=== PATIENT | female | born 1990 | race Caucasian/White ===

== ENCOUNTER → 2020-11-29 08:30 | Outpatient (CLI) | payer OTHER, SELFPAY ==
--- NOTE | 2020-11-29 08:36 | DI.US.S_ITS ---
PROCEDURE: US OB <= 14 WEEKS FETUS INDICATIONS: INITIAL SIZING AND DATING OUTSIDE/PRIOR DATING DATA: Last menstrual period (LMP): 10/14/2020 . LMP-based estimated date of delivery (REX): 07/21/2021 First dating scan (date and location): 11/29/2020 . Estimated date of delivery (REX) from first dating scan: 07/23/2021 . TECHNIQUE: Real-time scanning was performed of the fetus and maternal pelvic organs, with image documentation. COMPARISON: None. FINDINGS: Single intrauterine gestational sac with 1.4 cm main stack diameter corresponding with a 6 week 2 day gestation. Yolk sac is identified, however, no pole or cardiac motion observed. No perigestational bleed. Maternal organs: Ovaries unremarkable. No evidence of torsion or adnexal mass. . IMPRESSION: Intrauterine gestational sac contains yolk sac but no pole or cardiac motion. Differential possibilities include normal early , anembryonic and demise. Consider short-term follow-up. Dictated by: Eugene Del Toro M.D. on 11/30/2020 at 18:08 Approved by: Eugene Del Toro M.D. on 11/30/2020 at 18:11
== END ==
PROVIDERS: PCP Family Medicine; Referring Provider Nurse Practitioner Obstetrics & Gynecology; Visit Provider Nurse Practitioner Obstetrics & Gynecology
DX: Z36.87 Encounter for antenatal screening for uncertain dates (principal); Z3A.01 Less than 8 weeks gestation of pregnancy
CPT/HCPCS: 76801; 76817

== ENCOUNTER → 2021-03-15 15:35 | Outpatient (CLI) | payer OTHER, SELFPAY ==
--- NOTE | 2021-03-15 15:38 | DI.US.S_ITS ---
PROCEDURE: US OB >= 14 WEEKS FETUS INDICATIONS: 20 WEEKS ANATOMICAL SURVEY OUTSIDE/PRIOR DATING DATA: Last menstrual period (LMP): 10/14/2020. LMP-based estimated date of delivery (REX): 07/21/2021 First dating scan (date and location): 11/29/2020 Estimated date of delivery (REX) from first dating scan: 07/23/2020 TECHNIQUE: Real-time scanning was performed of the fetus, with image documentation and biometric measurements. Endovaginal scanning: Not performed COMPARISON: None. FINDINGS: General: A single living intrauterine gestation is present. Presentation: Cephalic Placenta: Placental position is posterior, without previa. Cord inserts approximately 3.2 centimeters from the placental edge. Amniotic fluid index: 15.3 cm, normal range is 5-24 cm. heart rate: 144 beats per minute. Maternal cervical canal: 3.5 cm long. Normal lower limit is 2.5 cm. biometrics: Biparietal diameter: 5.1 cm corresponding to 21 weeks 2 days Head circumference: 17.8 cm corresponding to 20 weeks 2 days Cephalic index: 84.4 (normal 74-83) Abdominal circumference: 15.6 centimeters corresponding to 20 weeks 5 days Femur length: 3.2 cm corresponding to 20 weeks 0 days Estimated gestational age from initial scan: 21 weeks 3 days Composite gestational age from present scan: 20 weeks 4 days Estimated weight and percentile: 353 grams corresponding to the 8th percentile Measurement variability for biometric dating: +/- 7 days from 14 weeks to 15 weeks 6 days gestation, +/- 10 days from 16 weeks to 21 weeks 6 days gestation, +/- 2 weeks from 22 weeks to 27 weeks 6 days gestation, +/- 3 weeks for 28 weeks gestation or later. weight reference: 4500 g or EFW >90/95% is considered macrosomia or large for gestational age. EFW <10% is small for gestational age. EFW 5% or less is considered intra-uterine growth restriction. Anatomic survey: Neuro: Ventricles are non-dilated at less than 10 mm. Cisterna magna is normal at 3-11 mm. Cerebellum is normal in size and morphology. Nuchal skin fold: Normal at less than 6 mm between 14-21 weeks gestational age. Face: Nose and lips, facial profile are normal. Spine: No evidence for spina bifida. Heart: 4-chambered heart is present. Outflow tract not well delineated. Diaphragm: Diaphragm is intact. Stomach: Left-sided stomach is present. Kidneys: No hydronephrosis. Normal is less than 5 mm in 2nd trimester, less than 7 mm in 3rd trimester. Cord: 3-vessel cord has orthotopic insertion. Bladder: Normal in size. Extremities: All 4 extremities identified. IMPRESSION: Single living intrauterine with heart rate of 144 beats per minute in cephalic position. Composite gestational age on today's exam is 20 weeks 4 days. Estimated weight measures 353 grams corresponding to the 8th percentile. The cardiac outflow tracts are not well delineated on today's examination. Consider repeat if clinically warranted. No other anatomic abnormality identified. Cephalic index is slightly increased which may be due to positioning and lack of other suspicious findings. Brachycephaly is not completely excluded. Consider follow-up if clinically warranted. Dictated by: Javid Verma D.O. on 03/16/2021 at 8:04 Approved by: Javid Verma D.O. on 03/16/2021 at 8:21
== END ==
PROVIDERS: PCP Family Medicine; Referring Provider Nurse Practitioner Obstetrics & Gynecology; Visit Provider Nurse Practitioner Obstetrics & Gynecology
DX: Z36.89 Encounter for other specified antenatal screening (principal); Z3A.20 20 weeks gestation of pregnancy
CPT/HCPCS: 76811

== ENCOUNTER → 2021-04-12 15:40 | Outpatient (CLI) | payer OTHER, SELFPAY ==
--- NOTE | 2021-04-12 | DI.US.S_ITS ---
PROCEDURE: US OB FOLLOW UP INDICATIONS: HEART OUTFLOW TRACTS, GROWTH, CEPHALIC INDEX FOLLOW UP OUTSIDE/PRIOR DATING DATA: Last menstrual period (LMP): 10/14/20 LMP-based estimated date of delivery (REX): 07/21/21 . First dating scan (date and location): 11/29/20 . Estimated date of delivery (REX) from first dating scan: 07/23/21 . TECHNIQUE: Real-time scanning was performed of the fetus, with image documentation and biometric measurements. Endovaginal scanning: Not performed COMPARISON: [facility], OB >= 14 WEEKS FETUS, 03/15/2021, 16:36. [facility], OB <= 14 WEEKS FETUS, 11/29/2020, 8:49. FINDINGS: General: A single living intrauterine gestation is present. Presentation: Breech. Placenta: Placental position is posterior , without previa. Amniotic fluid index: 15.1 cm, normal range is 5-24 cm. heart rate: 141 beats per minute. Maternal cervical canal: 4.6 cm long. Normal lower limit is 2.5 cm. biometrics: Biparietal diameter: 6.2 cm, 25 weeks 2 days Head circumference: 3.4 cm, 25 weeks 3 days Abdominal circumference: 21.7 cm, 26 weeks 1 day Femur length: 4.3 cm, 24 weeks 0 days (7th percentile) Estimated gestational age from initial scan: 25 weeks 3 days Composite gestational age from present scan: 25 weeks 2 days Estimated weight and percentile: 794 g, 34th percentile Measurement variability for biometric dating: +/- 7 days from 14 weeks to 15 weeks 6 days gestation, +/- 10 days from 16 weeks to 21 weeks 6 days gestation, +/- 2 weeks from 22 weeks to 27 weeks 6 days gestation, +/- 3 weeks for 28 weeks gestation or later. weight reference: 4500 g or EFW >90/95% is considered macrosomia or large for gestational age. EFW <10% is small for gestational age. EFW 5% or less is considered intra-uterine growth restriction. Other: Normal appearance of the ventricular outflow tracts. Prominence of the renal pelves measuring 7 mm on the left and 5 mm on the right. IMPRESSION: Single living intrauterine fetus in breech presentation. Expected interval growth Prominence of both renal pelves, left greater than right. Recommend follow-up. Dictated by: Kana Gonzalez M.D. on 04/12/2021 at 16:59 Approved by: Kana Gonzalez M.D. on 04/12/2021 at 17:03
== END ==
PROVIDERS: PCP Family Medicine; Referring Provider Nurse Practitioner Obstetrics & Gynecology; Visit Provider Nurse Practitioner Obstetrics & Gynecology
DX: Z36.2 Encounter for other antenatal screening follow-up (principal); Z3A.25 25 weeks gestation of pregnancy
CPT/HCPCS: 76816

== ENCOUNTER → 2021-06-07 07:28 | Outpatient (CLI) | payer OTHER, SELFPAY ==
[2021-06-07 09:30] LABS: Glucose Fasting 80 mg/dL (70-100)
[2021-06-07 10:42] LABS: Glucose 1 Hour 160 mg/dL (70-170)
[2021-06-07 11:04] LABS: Glucose Tol Interpretation INTERPRETATION
[2021-06-07 13:15] LABS: Glucose 3 Hour 131 mg/dL (70-115)
[2021-06-07 13:27] LABS: Glucose 2 Hour 152 mg/dL (70-140)
== END ==
PROVIDERS: PCP Family Medicine; Referring Provider Nurse Practitioner Obstetrics & Gynecology; Visit Provider Nurse Practitioner Obstetrics & Gynecology
DX: Z34.90 Encounter for supervision of normal pregnancy, unspecified, unspecified trimester (principal); Z3A.29 29 weeks gestation of pregnancy
CPT/HCPCS: 36415; 82951; 82952

== ENCOUNTER → 2021-06-17 09:29 | Outpatient (CLI) | payer OTHER, SELFPAY ==
--- NOTE | 2021-06-17 | DI.US.S_ITS ---
PROCEDURE: US OB FOLLOW UP INDICATIONS: RENAL PELVIECTASIS OUTSIDE/PRIOR DATING DATA: Last menstrual period (LMP): 10/14/2020. LMP-based estimated date of delivery (REX): 07/21/2021. First dating scan (date and location): 11/29/2021. Estimated date of delivery (REX) from first dating scan: 07/23/2021. TECHNIQUE: Real-time scanning was performed of the fetus, with image documentation and biometric measurements. COMPARISON: [facility], OB >= 14 WEEKS FETUS, 03/15/2021, 16:36. [facility], OB <= 14 WEEKS FETUS, 11/29/2020, 8:49. [facility] OB FOLLOW UP, 04/12/2021, 16:08. FINDINGS: General: A single living intrauterine gestation is present. Presentation: Breech. Placenta: Placental position is posterior , without previa. Amniotic fluid index: 16.7 cm, normal range is 5-24 cm. heart rate: 155 beats per minute. Maternal cervical canal: Not well seen biometrics: Composite gestational age from initial scan: 34 weeks 6 days Other: Urinary bladder is prominent. Right renal pelvis measures 5.9 mm. Left renal pelvis measures 9.3 mm. This is compared to 5.4 mm and 6.7 mm on the right and left respectively. IMPRESSION: 1. Single live intrauterine . 2. Progressive prominence of the renal pelvis on the right with stable appearance on the left. Urinary bladder appears prominent. Continued interval imaging follow-up is recommended. We strive to produce accurate, complete, and clear reports of imaging services. To assist us in improving patient care, this report was composed using standard report templates and voice recognition software. Therefore, it may contain abnormal punctuation, insertions and/or omissions. Occasional wrong-word or sound-alike substitutions may occur. Though we review the report and make efforts to correct it, we do recommend that the report be read carefully in proper context to recognize any text inaccuracies. Dictated by: Antonieta Rodriguez M.D. on 06/17/2021 at 10:33 Approved by: Antonieta Rodriguez M.D. on 06/17/2021 at 10:36
== END ==
PROVIDERS: PCP Family Medicine; Referring Provider Nurse Practitioner Obstetrics & Gynecology; Visit Provider Nurse Practitioner Obstetrics & Gynecology
DX: Z34.93 Encounter for supervision of normal pregnancy, unspecified, third trimester (principal); Z3A.34 34 weeks gestation of pregnancy
CPT/HCPCS: 76816

== ENCOUNTER 2021-07-09 05:57 | Observation (INO) | payer OTHER, SELFPAY ==
[2021-07-09] MEDS: TERBUTALINE 1 MG/ML VIAL 0.25 MG SUBCUT (07:49)
--- NOTE | 2021-07-09 08:22 | PM.OBTRLD ---
Visit Information Visit Information Date of evaluation: 07/09/21 Primary OB Provider: Deyanira Gilbert On-call OB Provider: Becca Ryan Reason for Evaluation: Yes other Comments/Additional reasons for admission: This patient is a 31yo P0 @37+0 with known breech presentation, presenting for attempted external cephalic version. We discussed the risks of PROM, cord prolapse, and placental abruption with need for emergent delivery, and the patient vocalized understanding. After informed consent was obtained, the patient was placed supine. An NST prior to the procedure was reassuring with cat 1 EFM, and the patient was administered 0.25mg IM terbutaline. Complete breech presentation was confirmed on ultrasound, and three attempts were made to attempt to convert the fetus to cephalic presentation with minimal movement of the vertex. Breech lie was confirmed after the third attempt, and the patient remained in L&D for further monitoring. We discussed the recommendation for CS at 39 weeks, and the patient vocalized understanding. Vital Signs Vital Signs: S [facility] Social History Smoking Status: Never smoker Exam Vital Signs (past 8 hours): 108/63, HR 78 Const General: cooperative, healthy appearing, comfortable and acute distress Evaluation Evaluation Baseline heart rate: 130 Variability: Moderate (11-25) monitor accelerations: Present Monitor Decelerations: Absent Category of Tracing: Reactive Status: Category l Diagnosis, Plan/Disposition Plan/Disposition Plan: Home with routine precautions and plan for primary CS for breech presentation. OB Disposition: home
== END 2021-07-09 09:22 | disposition home or self-care (01) ==
PROVIDERS: Admitting Provider Family Medicine; PCP Family Medicine; Referring Provider Family Medicine; Visit Provider Family Medicine
DX: O32.1XX0 Maternal care for breech presentation, not applicable or unspecified (principal); Z3A.37 37 weeks gestation of pregnancy; Z36.85 Encounter for antenatal screening for Streptococcus B
CPT/HCPCS: 59025; 59050; 59412; 76815; 87081; 96372; G0378; G0379

== ENCOUNTER → 2021-07-09 08:51 | Outpatient (ROUT) | payer OTHER, SELFPAY | PROVIDERS: PCP Family Medicine; Visit Provider Nurse Practitioner Obstetrics & Gynecology | DX: Z36.85 Encounter for antenatal screening for Streptococcus B (principal) | CPT/HCPCS: 87081 ==

== ENCOUNTER 2021-07-28 21:13 | Inpatient (IN) | payer OTHER, SELFPAY ==
--- NOTE | 2021-07-28 21:55 | P.HPOB_ITS ---
OB HPI Date/Time Date of admission: 07/28/21 Date Patient Seen: 07/28/21 Time Patient Seen: 21:55 History of Present Condition Chief complaint: Estimated Gestational Age (weeks): 39+5 : 1 Para: 0 care: good care Ultrasounds: normal mid trimester US Obstetrical complications: other (Breech presentation) Medical complications OB: none Indications Operative indications ( section): breech presentation Preadmission Labs Last OB Lab Results: No Data to Display Evaluation Evaluation Baseline heart rate: 135 Variability: Moderate (11-25) monitor accelerations: Present Monitor Decelerations: Absent Contraction Frequency (minutes): 3 Uterine Contraction Intensity: Moderate Status: Category l Dilation (cm): 6 Effacement (%): 100 station: -1 Comments: [facility] Social History Smoking Status: Never smoker Meds Home Medications and Allergies Home Medications Medication Instructions Recorded Confirmed Type biotin PO 04/21/18 07/23/21 History cetirizine 10 mg tablet (24Hour 5 mg PO DAILY PRN 04/21/18 07/23/21 History Allergy) drospirenone 3 mg-ethinyl 1 tab PO DAILY 04/21/18 07/23/21 History estradiol 0.02 mg tablet (Gianvi (28)) multivitamin 1 tab PO DAILY 04/21/18 07/23/21 History nadolol 20 mg tablet 20 mg PO DAILY #30 tab 05/27/18 07/23/21 Rx eletriptan 40 mg tablet 40 mg PO Q2-4H PRN #12 tab 06/13/19 07/23/21 Rx eletriptan 40 mg tablet 40 mg PO Q2-4H PRN #10 tab 07/12/19 07/23/21 Rx Allergies Allergy/AdvReac Type Severity Reaction Status Date / Time gluten Allergy Intermediate STOMACH Verified 07/23/21 16:32 DICOMFORT lactase [From Dairy Aid] AdvReac Mild Intolerance Verified 07/23/21 16:32 OB Exam Narrative Exam Narrative: Generally: Patient in some distress secondary to contraction Fundal height: 39 cm Estimated weight: 7-1/2 lb Extremities: No edema Assessment and Plan Assessment and Plan Assessment and Plan narrative: Assessment: 31-year-old 1 para 0 at 39-,5/7 weeks gestation in active labor with persistent breech presentation Plan: Primary low-transverse section The risks including bleeding, infection, injury to the bowel, bladder, or ureters explained to the patient. She understands these risks and agrees to proceed. A full par Q was held and consent form was signed. Time Spent with Patient Total time spent with greater than 50% in coordination of care (as documented) at patient's floor/unit and/or counseling patient:: 15-24 minutes
--- NOTE | 2021-07-28 21:58 | PM.PREOP ---
Pre-operative Note COVID-19 COVID-19 status: Negative Result date/Date tested (Pos, Neg/Pending): 07/28/21 Criteria for continued procedure: Non-surgical alternatives not available or appropriate per current SOC Interval Note History & Physical reviewed/Exam performed by Physician: Yes Changes to H&P: No H&P completed within 30 days and has changed as indicated here:: 07/28/21
[2021-07-28 22:08] VITALS: BP 132/80
--- NOTE | 2021-07-28 22:08 | SUR.OPER ---
Supine on Padded OR bed, head on pillow, safety belt at thigh, arms secured on padded arm boards at <90 degrees abduction. Bump under right buttock. Legs uncrossed with pillow under knees, gel pad to heels, tape over blanket to lower legs.
[2021-07-28 22:09] LABS: Add Manual Diff / Slide Review NO; Basophils Absolute Auto 0 /uL (0-100); Basophils Percent Auto 0.2 % (0-2); Eosinophils Absolute Auto 100 /uL (0-450); Eosinophils Percent Auto 0.7 % (2-4); Hematocrit 34.3 % (36-46); Hemoglobin 11.9 g/dL (12.0-16.0); Lymphocytes Absolute Auto 2100 /uL (1100-4500); Lymphocytes Percent Auto 19.3 % (25-40); Mean Corpuscular HGB Conc 34.7 % (30-36); Mean Corpuscular Volume 86.5 fL (80-100); Monocytes Absolute Auto 800 /uL (0-900); Monocytes Percent Auto 7.6 % (3-14); Neutrophils Absolute Auto 7700 /uL (1500-7000); Neutrophils Percent Auto 72.2 % (50-75); Platelet Count 267 X10^3/uL (150-400); Red Blood Cell Count 3.96 X10^6/uL (4.0-5.2); Red Cell Distribution Width 14.3 % (11.6-14.8); White Blood Cell Count 10.6 X10^3/uL (4.5-11.0)
[2021-07-28] MEDS: LACTATED RINGERS 1,000 ML 100 ML IV (22:10)
[2021-07-28 22:16] LABS: COVID19 -Nasal RAPID Negative (Negative)
[2021-07-28] MEDS: CEFAZOLIN 2 GM/20 ML SYRINGE IV (22:25)
[2021-07-28 22:45] VITALS: PULSE 53; RESP 12
--- NOTE | 2021-07-28 23:01 | SUR.OPER ---
Viable male delivered via section at 22:55. Cord blood vials x2 and placenta sent with L&D RN.
--- NOTE | 2021-07-28 23:43 | P.OP_ITS ---
Operative Date/Time/Diagnoses Date of procedure: 07/28/21 Time of procedure: 23:43 Pre-op diagnosis: 39-5/7 weeks gestation Breech presentation Active labor Post-op diagnosis: same Procedure & Clinicians Procedure: Primary low-transverse section Same procedure as scheduled: Yes Indications: 39-,5/7 weeks gestation Breech presentation Active labor Surgeon: Concetta Wong Click Yes if Unassisted: No Organizational Development Specialist: Deyanira Gilbert Reason for Organizational Development Specialist: The educational program assistant retracted upon entry into the abdomen and uterus. She is said with the breech delivery of the . She is tested with retraction and c utting of suture on closing of the uterus and abdomen. Anesthesia Type: Spinal (With Duramorph) Operative Notes Findings: Live male infant in the complete breech presentation Normal uterus, tubes, and ovaries Moderate meconium-stained amniotic fluid Cervix completely dilated Closure Type: primary Specimen(s): cord pH and placenta Intraoperative meds administered: Duramorph, Ketorolac and Pitocin Applied: Catheter (To continuous drainage) Estimated Blood Loss (mL): 400 Blood products transfused: none Procedure in detail: The patient was taken to the operating room where she was placed in the seated position. Spinal anesthesia with Duramorph was administered. She was then placed in the dorsal supine position with a leftward tilt. She was prepped and draped in the usual sterile fashion. A timeout was performed. After spinal analgesia was found to be adequate, a Pfannenstiel skin incision was made 2 fingerbreadths above the pubic symphysis and carried through to the underlying layer fascia. The fascia was nicked in the midline, and the incision extended bilaterally with the Alexander scissors. The superior aspect of the fascial incision was grasped with a Eliza clamps, elevated, and the underlying rectus muscles dissected off sharply and bluntly. Attention was then turned to the inferior a spect of this incision which in a similar fashion was grasped with a Eliza clamps, elevated, and the underlying rectus muscles dissected off sharply and bluntly. The rectus muscles were in the midline. The peritoneum was identified, grasped between 2 hemostats, and entered sharply with the Metzenbaum scissors. This incision was extended superiorly and inferiorly with good visualization of the bladder. The bladder blade was inserted. The vesicouterine peritoneum was identified, grasped with the pickup, and entered sharply with the Metzenbaum scissors. This incision was extended bilaterally, and the bladder flap was created digitally. The bladder blade was reinserted. The lower uterine segment was incised in a transverse fashion with the scalpel. Upon entering the amniotic sac there was a moderate amount of meconium-stained amniotic fluid. The was delivered by total breech extraction. The nose and mouth were suctioned with bulb suction. The cord was double clamped and cut after 1 minute. The infant was handed off to waiting RN and RT. The placenta was delivered by gentle traction. The uterus was cleared of all clots and debris. The uterine incision was repaired with #1 chromic in a running interlocking fashion, and a second layer the same suture was used for an imbricating layer. Hemostasis was achieved. The tubes and ovaries were examined and were found to be normal. The gutters were cleared of all clots and debris. The bladder flap was reapproximated using 2-0 Vicryl in a running fashion. The parietal peritoneum was closed using 2-0 Vicryl in a running fashion. The fascia was reapproximated using 0 Vicryl in a running fashion. Subcutaneous layer was copiously irrigated with warm normal saline. 6 simple interrupted sutures of 3-0 Vicryl were placed to reapproximate the subcutaneous layer. The skin was closed with 4-0 Monocryl in a subcuticular fashion. Steri- Strips were placed. An Aquacel dressing was placed. The uterus was expressed of a moderate amount of old blood. Sponge, lap, and instrument counts were correct x-2. The patient tolerated the procedure well, and was taken to PACU in stable condition. Complications: none [place] Baby 1: Infant Gender: Male Presentation: breech Details: complete Placental Delivery Description: Expressed Cord Vessel Description: 3 Vessels and Clamped/Cut (After 1 minute) score (1 min): 9 score (5 min): 9 weight: 8 lb 8 oz Post-operative Condition: stable Disposition: PACU Aftercare: routine postop
[2021-07-28 23:44] VITALS: BP 120/65; PULSE 54; RESP 11; TEMP 36.6; O2SAT 98
[2021-07-28 23:49] VITALS: BP 123/67; PULSE 54; RESP 11; O2SAT 98
[2021-07-28 23:52] VITALS: BP 118/68; PULSE 54; RESP 11; O2SAT 98
[2021-07-28 23:57] VITALS: BP 116/66; PULSE 53; RESP 11; O2SAT 98
[2021-07-29] MEDS: ONDANSETRON 4 MG/2 ML INJ IV (00:56)
[2021-07-29] MEDS: LACTATED RINGERS 1,000 ML 100 ML IV (01:30)
[2021-07-29] MEDS: METOCLOPRAMIDE 10 MG/2 ML INJ IV (01:51)
[2021-07-29] MEDS: diphenhydrAMINE 50 MG/ML VIAL 25 MG IV (03:21)
[2021-07-29] MEDS: KETOROLAC 30 MG/ML VIAL IV ×3 (05:20→21:05)
[2021-07-29] MEDS: DOCUSATE 100 MG CAPSULE 200 MG PO (09:26)
[2021-07-29] MEDS: TRAMADOL 50 MG TABLET PO ×2 (09:27→17:30)
[2021-07-29] MEDS: PRENATAL VIT,CALC/IRON/FOLIC 1 TABLET 1 TAB PO (09:28)
[2021-07-30] MEDS: TRAMADOL 50 MG TABLET PO ×2 (02:01→08:00)
[2021-07-30] MEDS: IBUPROFEN 600 MG TABLET PO ×2 (03:22→08:57)
[2021-07-30] MEDS: DOCUSATE 100 MG CAPSULE 200 MG PO (08:57)
[2021-07-30] MEDS: PRENATAL VIT,CALC/IRON/FOLIC 1 TABLET 1 TAB PO (08:57)
--- NOTE | 2021-07-30 11:11 | P.PNOB_ITS ---
Subjective - OB Subjective Patient comments: no complaints, pain well controlled, tolerating diet and flatus present baby status: doing well and nursing well [place] feeding status: exclusively breast feeding Date Patient Seen: 07/29/21 Time Patient Seen: 13:00 Exam Vital Signs (past 8 hours): Oxygen Delivery Method Room Air Narrative Exam Narrative: Generally: Patient is sitting up in bed, no acute distress Lungs: Clear to auscultation bilaterally Cardiovascular: Regular rate and rhythm Fundus: Firm at U -1 Incision: Clean dry and intact with Aquacel dressing Extremities: Negative Homans, no edema Objective Labs Result Diagrams: 07/28/21 21:35 Assessment & Plan Plan day: 1 plan OB: routine postop care Time Spent With Patient Time: Total time spent is greater than 50% in coordination of care (as documented) at patient's floor/unit and/or counseling patient: Time with patient: 15-24 minutes
--- NOTE | 2021-07-30 11:15 | P.DS_ITS ---
Discharge Providers Provider Date of admission: 07/28/21 21:13 Discharge Date: 07/30/21 Primary care physician: Dali Triplett MD Consults: 07/28/21 23:59 Consult to Residential Care Officer Routine Comment: Discharge provider: Concetta Wong MD Summary Hospital Course Date Patient Seen: 07/30/21 Time Patient Seen: 13:30 Diagnoses: 39-5/7 weeks gestation Breech presentation Active labor Hospital Course: Patient is a 31-year-old 1 para 1 who presented to Labor and delivery in active labor at 39-,5/7 weeks gestation with a breech presentation. She underwent an emergent primary low-transverse section without complication. Her postoperative course was unremarkable. She was discharged home on postop day # 2. She was tolerating a diet. Her bleeding was tapering. was going well. She was able to empty her bladder without the catheter. No nausea or vomiting. Pain well controlled. Peripartum Data Infant Delivery Method: Emergency Section Laceration Description: None Episiotomy description: None Procedures: Spinal anesthesia Primary low-transverse section complications: none 1: Gender: Male Disposition of : home Status at Discharge Cognitive/behavioral status at discharge: oriented Functional status at discharge: independent ambulation Overall status at discharge: patient is progressing back to baseline Time Spent with Patient Time attestation: Total time spent providing and/or coordinating discharge services: Time spent: Less than 30 minutes Objective Labs Result Diagrams: 07/28/21 21:35 Exam Vital Signs (past 8 hours): Oxygen Delivery Method Room Air Narrative Exam Narrative: Generally: Patient is sitting up in bed, holding infant, no acute distress Lungs: Clear to auscultation bilaterally Cardiovascular: Regular rate and rhythm Fundus: Firm at U -1 Incision: Clean dry and intact with Aquacel dressing Extremities: Negative Homans, trace edema Discharge Plan Discharge Plan Patient Disposition: Home Provider Discharge Comment: Call with fever, chills, redness or drainage around the incision, or bleeding vaginally more than a pad in an hour Discharge orders & Medications Prescriptions: New tramadol 50 mg tablet 50 mg PO Q4H PRN (Reason: pain) Qty: 20 0RF Continued eletriptan 40 mg tablet 40 mg PO Q2-4H PRN (Reason: migraine headache) Qty: 12 11RF Rx Instructions: until response; not to exceed 2 doses in a 24 hour period multivitamin tablet 1 tab PO DAILY 0RF cetirizine [24Hour Allergy] 10 mg tablet 5 mg PO DAILY PRN (Reason: rhinitis) 0RF eletriptan 40 mg tablet 40 mg PO Q2-4H PRN (Reason: migraine headache) Qty: 10 3RF Rx Instructions: until response; not to exceed 2 doses in a 24 hour period nadolol 20 mg tablet 20 mg PO DAILY Qty: 30 11RF Follow up/Referrals: Concetta Wong MD [Physician] - 08/05/21 (Please follow up with Dr. Wong on August 05 at 2:45PM. Call with any questions) Diet/Activity/Treatments Diet: Regular Activity: No heavy lifting Skin/Wound/Dressing Care Report to your healthcare provider any signs of infection, such as:: chills, fever, increased pain, unusual drainage and unusual redness Dressing: Do not remove Visit Report/Discharge Packet Instructions: DI for , DI for Prescription Opioid Use Stand Alone Forms: Discharge: Care Discharge Data Primary Care Provider: Dali Triplett
[2021-07-30 11:23] VITALS: BP 116/69; PULSE 72; RESP 15; TEMP 36.6
[2021-07-30] MEDS: MEASLES,MUMPS,RUBELLA VACC/PF 0.5 ML VIAL SUBCUT (11:57)
[2021-07-30] MEDS: ACETAMINOPHEN 325 MG TABLET 650 MG PO (11:58)
== END 2021-07-30 14:00 | disposition home or self-care (01) | DRG 788 ==
PROVIDERS: Admitting Provider Obstetrics & Gynecology; PCP Family Medicine; Referring Provider Obstetrics & Gynecology; Visit Provider Obstetrics & Gynecology
PROC: 10D00Z1 Extraction of Products of Conception, Low, Open Approach (ICD-10-PCS; CPT 59514; principal; 2021-07-28 22:00)
DX: O64.1XX0 Obstructed labor due to breech presentation, not applicable or unspecified (principal); Z3A.39 39 weeks gestation of pregnancy; Z37.0 Single live birth
CPT/HCPCS: 36415; 59050; 85025; 86850; 86900; 86901; 87635; C9803; G0379; J0690; J1200; J1885; J2274; J2405; J2590; J2765

== ENCOUNTER 2022-11-21 10:30 | Outpatient (RCR) | payer OTHER, SELFPAY ==
--- NOTE | 2022-08-12 18:05 | PT.OIE ---
Current Diagnoses Stress incontinence (female) (male) (08/12/22) Past Medical History (Last Updated 10/01/21 @ 11:15 by Sameera Nagy DO) Breech presentation of fetus Migraine without status migrainosus, not intractable Visit Care Team Role Provider Type Leah Swan DO Family Provider Physician Primary Care Provider Specialty: Medical Address: [address] [place] [address], [address], [place], [address] Email: [email or web address] Deyanira Gilbert CNM Attending Provider Advanced Drop Crew Laborer Referring Provider Specialty: CAFETERIA HELPER Address: [address] [place] [address], [address], [place], [address] Email: [email or web address] Physical Therapy Initial Evaluation PT-OP-A Visit Information Start: 08/08/22 18:28 Freq: Status: Active Protocol: Document 08/12/22 13:51 LRN (Rec: 08/12/22 14:38 LRN [id number]) Out-Patient Physical Therapy Visit Information Visit Information Visit Type Initial Evaluation Visit Start Time 13:51 Visit Stop Time 14:33 Total Visit Minutes 42 Visit Number 1 Evaluation Information Evaluation Date 08/12/22 Precautions Precautions 07/28/21 due to baby breech and fast progressing labor. PT-OP-B Current Condition Start: 08/08/22 18:28 Freq: Status: Active Protocol: Document 08/12/22 13:51 LRN (Rec: 08/12/22 14:38 LRN [id number]) Current Condition History of Current Condition Onset Date 07/28/21 Current Complaints Urinary leakage with jumping, occ sneezing, laughing, & tailbone pain. History of Current Condition Pt is a 32 year old female, . She reports stress incontinence noted after going back to gym 3 months post- doing jumping. No longer jumping. Has intermittent tailbone pain when sitting, always in car, and when leaning back in chairs and with sit ups. Had tailbone pain during that was terrible. Tailbone pain rated 4/10, and a strong ache requiring her to shift position in sitting. Pt denies Bowel dysfunction, daily BM's type 4. Prior Treatments and Tests None. When in high school, hurt her tailbone and saw PT for something else and was told it was a severe bruise, and pain eventually went away. Treatment Goals Patient/Caregiver Goals Pt goal is to learn something to work on to strengthen PF, and to work towards jumping, and relieve pain at tailbone. 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 Hx of tailbone pain. PT-OP-C Subjective Start: 08/08/22 18:28 Freq: Status: Active Protocol: Document 08/12/22 13:51 LRN (Rec: 08/12/22 14:38 LRN [id number]) Patient Questionnaires Pelvic Pain and Urgency/Frequency Patient Symptom Scale Pelvic Pain Score 6 PT-OP-I Pelvic Floor Start: 08/08/22 18:28 Freq: Status: Active Protocol: Document 08/12/22 13:51 LRN (Rec: 08/12/22 14:38 LRN [id number]) Pelvic Floor Assessment Urine Pelvic Floor Surgery No Leakage Size Small Leakage Cause Cough,Exercise,Sneeze Other Leakage Causes Jumping Bowel Bowel Surgery No Other Bowel Symptoms No symptoms of bowel involvement Pelvic Clock Pelvic Clock Other Normal Perineal Descent Resting Absent Bearing Absent Contraction Ability Manual Muscle Testing Left 3 Manual Muscle Testing Right 2 Manual Muscle Testing Anterior 2 Manual Muscle Testing Posterior 3 Muscle Endurance (Seconds) 10 Number of Quick Contractions In 10 7 Seconds PT-OP-K Range of Motion Start: 08/08/22 18:28 Freq: Status: Active Protocol: Document 08/12/22 13:51 LRN (Rec: 08/12/22 14:38 LRN [id number]) Lumbar Spine Range of Motion Lumbar Spine Active Degrees Testing Position Standing Flexion 100 Extension 5 Rotation Left 20 Rotation Right 23 Lateral Flexion Left 20 Lateral Flexion Right 15 Comments Trunk Flexion is 100 deg?s with 65 deg?s hip flexion, Trunk extension is 5 deg?s with 10 deg?s hip extension. Hip Goniometric Range of Motion Hip Right Passive Testing Position Supine Internal Rotation 45 External Rotation 50 Left Passive Testing Position Supine Internal Rotation 35 External Rotation 60 PT-OP-M Strength Start: 08/08/22 18:28 Freq: Status: Active Protocol: Document 08/12/22 13:51 LRN (Rec: 08/12/22 14:38 LRN [id number]) Trunk Strength Trunk Manual Muscle Testing Core Stabilization Loss of core stability with R hip ext. Hip Strength Hip Manual Muscle Testing Right Comments All muscle groups are 5/5 Left Comments All muscle groups are 5/5 PT-OP-Q Treatments Start: 08/08/22 18:28 Freq: Status: Active Protocol: Document 08/12/22 13:51 LRN (Rec: 08/12/22 14:38 LRN [id number]) Self-Care/Home Management Treatment Education Other Education Discussed results of evaluation, goals, and plan of care (POC). Pt agreeable to goals and POC. Pt educated in use of Bladder Diary and I/S in tracking for 1 week. Discussed use of 2 different diaries for tracking of bladder. Pt I/S in Kegel ex's of Quick Flicks, Long Holds and Aggrevators. Activities Self-Care/Home Management Activities Issued, discussed, & reviewed Bladder Diary for pt to complete over the next 7 days. Explained how to fill out diary and counting of urination times. Issued & reviewed HEP: Kegel ex's and discussed exercise of Quick Flicks, Long Holds and Aggravators. I/S pt in hip ER stretch in sitting. PT-OP-T Assessment and Plan Start: 08/08/22 18:28 Freq: Status: Active Protocol: Document 08/12/22 13:51 LRN (Rec: 08/12/22 14:38 LRN [id number]) Physical Therapy Assessment Rehab Potential Rehabilitation Potential Good Evaluation Complexity Number of Personal Factors/Comorbidities 1-2 Number of Body Systems Impaired 3 Clinical Presentation at Evaluation Evolving Impairments Impairments Activity Tolerance,Pain,ROM, Strength,Transfers Goals Three Impairment Tailbone pain rated 4/10. Teacher Home Therapy Goal (LTG) Relieve pain at tailbone with pt able to sit in car or chair without tailbone pain. Two Impairment Decreased PF strength with Urinary leakage with jumping. Short Term Goal (STG) Pt will be able to tolerate bouncing motions on TBall without urinary leakage. Teacher Home Therapy Goal (LTG) Pt will be educated in progressive program to progress towards jumping without urinary leakage. One Impairment Pt lacks appropriates self care HEP. Short Term Goal (STG) Pt will be educated in proper breathwork for jumping and daily activity movements. Teacher Home Therapy Goal (LTG) Pt will be educated in a HEP of PF strengthening ex's, hip mobility and postural exercises. Assessment Summary Assessment Pt is a 32 yo female who presents 1 year post- with stress urinary leakage. She demonstrates substitution of TA, gluteal muscles to perform a PF contraction. Her external PF tissues appear somewhat dry and may benefit from a estrodial cream to improve tissue health when appropriate. The pt will benefit from skilled physical therapy to improve hip mobility, improve awareness to improve PF strength, normalize PF ms tone, and improve symmetry of hip mobility and strength, in order to achieve the above stated goals. Physical Therapy Plan Frequency and Duration Frequency of Treatment 1x/Week Plan of Care Start Date 08/12/22 Plan of Care End Date 10/11/22 Therapeutic Interventions Therapeutic Interventions Home Exercise Program,Manual Therapy,Patient/Caregiver Education,Self-Care/Home Management,Soft Tissue Mobilization,Therapeutic Activities,Therapeutic Exercises Next Visit Focus/Plan Next Note Type Treatment Note Next Visit Plan Review bladder diary and make recommendation for proper fluid/food intake. Assess Coccyx for pain & check for DR. Education: PF hygiene, PF care, proper transfers for DR protection. Education: PF contractions in isolation of substitute muscles, coordination of proper breaths with ADLs, transfers, body mechanics and exercise. Ex: PF strengthening in isolation of substitute muscles. Proper breathing, PF strengthening, Core/TA stab, Pelvic stab (start Roll in/ outs if tolerated) hip strengthening, Hip stretch (ER >IR).
--- NOTE | 2022-08-12 18:07 | PT.OPPOC ---
Physical, Occupational & Speech Therapy At [facility] Current Diagnoses Stress incontinence (female) (male) (08/12/22) Visit Care Team Role Provider Type Leah Swan DO Family Provider Physician Primary Care Provider Specialty: Medical Address: [address] [place] [address], [address], [place], [address] Email: [email or web address] Deyanira Gilbert CNM Attending Provider Advanced Head Of Talent Management Referring Provider Specialty: BANK BOSS Address: [address] [place] [address], [address], [place], [address] Email: [email or web address] Plan Of Care PT-OP-T Assessment and Plan Start: 08/08/22 18:28 Freq: Status: Active Protocol: Document 08/12/22 13:51 LRN (Rec: 08/12/22 14:38 LRN [id number]) Physical Therapy Assessment Rehab Potential Rehabilitation Potential Good Evaluation Complexity Number of Personal Factors/Comorbidities 1-2 Number of Body Systems Impaired 3 Clinical Presentation at Evaluation Evolving Impairments Impairments Activity Tolerance,Pain,ROM, Strength,Transfers Goals Three Impairment Tailbone pain rated 4/10. Mcfp Goal (LTG) Relieve pain at tailbone with pt able to sit in car or chair without tailbone pain. Two Impairment Decreased PF strength with Urinary leakage with jumping. Short Term Goal (STG) Pt will be able to tolerate bouncing motions on TBall without urinary leakage. Hand Patcher Goal (LTG) Pt will be educated in progressive program to progress towards jumping without urinary leakage. One Impairment Pt lacks appropriates self care HEP. Short Term Goal (STG) Pt will be educated in proper breathwork for jumping and daily activity movements. Hand Patcher Goal (LTG) Pt will be educated in a HEP of PF strengthening ex's, hip mobility and postural exercises. Assessment Summary Assessment Pt is a 32 yo female who presents 1 year post- with stress urinary leakage. She demonstrates substitution of TA, gluteal muscles to perform a PF contraction. Her external PF tissues appear somewhat dry and may benefit from a estrodial cream to improve tissue health when appropriate. The pt will benefit from skilled physical therapy to improve hip mobility, improve awareness to improve PF strength, normalize PF ms tone, and improve symmetry of hip mobility and strength, in order to achieve the above stated goals. Physical Therapy Plan Frequency and Duration Frequency of Treatment 1x/Week Plan of Care Start Date 08/12/22 Plan of Care End Date 10/11/22 Therapeutic Interventions Therapeutic Interventions Home Exercise Program,Manual Therapy,Patient/Caregiver Education,Self-Care/Home Management,Soft Tissue Mobilization,Therapeutic Activities,Therapeutic Exercises Next Visit Focus/Plan Next Note Type Treatment Note Next Visit Plan Review bladder diary and make recommendation for proper fluid/food intake. Assess Coccyx for pain & check for DR. Education: PF hygiene, PF care, proper transfers for DR protection. Education: PF contractions in isolation of substitute muscles, coordination of proper breaths with ADLs, transfers, body mechanics and exercise. Ex: PF strengthening in isolation of substitute muscles. Proper breathing, PF strengthening, Core/TA stab, Pelvic stab (start Roll in/ outs if tolerated) hip strengthening, Hip stretch (ER >IR). Plan of Care Dates Plan of Care Start Date 08/12/22 Plan of Care End Date 10/11/22 Electronically Signed by: Jeannette Darden, PT 08/12/22 2031 If you are in agreement with this Plan of Care, please return a signed and dated copy. I have reviewed this Plan of Care and certify that the skilled therapy services above are required to meet the patient?s needs. Physician Signature Date Printed Name and Credentials Clinical Instructor Signature Printed Name and Credentials
--- NOTE | 2022-08-19 17:47 | PT.OTN ---
Current Diagnoses Stress incontinence (female) (male) (08/19/22) Physical Therapy Treatment Note PT-OP-A Visit Information Start: 08/08/22 18:28 Freq: Status: Active Protocol: Document 08/19/22 13:51 LRN (Rec: 08/19/22 14:37 LRN [id number]) Out-Patient Physical Therapy Visit Information Visit Information Visit Type Treatment Note Visit Start Time 13:51 Visit Stop Time 13:33 Total Visit Minutes 42 Visit Number 2 Evaluation Information Evaluation Date 08/12/22 Precautions Precautions 07/28/21 due to baby breech and fast progressing labor. PT-OP-B Current Condition Start: 08/08/22 18:28 Freq: Status: Active Protocol: Document 08/12/22 13:51 LRN (Rec: 08/12/22 14:38 LRN [id number]) Current Condition History of Current Condition Onset Date 07/28/21 Current Complaints Urinary leakage with jumping, occ sneezing, laughing, & tailbone pain. History of Current Condition Pt is a 32 year old female, . She reports stress incontinence noted after going back to gym 3 months post- doing jumping. No longer jumping. Has intermittent tailbone pain when sitting, always in car, and when leaning back in chairs and with sit ups. Had tailbone pain during that was terrible. Tailbone pain rated 4/10, and a strong ache requiring her to shift position in sitting. Pt denies Bowel dysfunction, daily BM's type 4. Prior Treatments and Tests None. When in high school, hurt her tailbone and saw PT for something else and was told it was a severe bruise, and pain eventually went away. Treatment Goals Patient/Caregiver Goals Pt goal is to learn something to work on to strengthen PF, and to work towards jumping, and relieve pain at tailbone. 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 Hx of tailbone pain. PT-OP-C Subjective Start: 08/08/22 18:28 Freq: Status: Active Protocol: Document 08/19/22 13:51 LRN (Rec: 08/19/22 14:37 LRN [id number]) OP-PT Subjective Patient Comments Patient Comments Doing Kegel exercises. PT-OP-I Pelvic Floor Start: 08/08/22 18:28 Freq: Status: Active Protocol: Document 08/19/22 13:51 LRN (Rec: 08/19/22 14:37 LRN [id number]) Pelvic Floor Assessment SEMG (uV) Baseline 5.7 Quick Contraction 15 Recruitment Pattern Good Relaxation Poor/Slow Holding Fair Stability of Hold Fair SEMG Stability of Rest Fair Comments Pelvic Floor Comments Pt I/S in safe and proper insert of vaginal probe for PF EMG biofeedback. Start position: Legs on bolster, hands on belly. Quick Flicks: 10 REPS: work 15.0 uV, rest is 7.6uV, 20 REPS: Work 15.6 uV, rest 7.4 uV. Long Holds: 10 REPS: work 16. 8 uV, rest is 6.0 uV, 20 REPS : Work 15.8 uV, rest 5.9 uV. Pt having visual feedback with EMG biofeedback. PT-OP-K Range of Motion Start: 08/08/22 18:28 Freq: Status: Active Protocol: Document 08/12/22 13:51 LRN (Rec: 08/12/22 14:38 LRN [id number]) Lumbar Spine Range of Motion Lumbar Spine Active Degrees Testing Position Standing Flexion 100 Extension 5 Rotation Left 20 Rotation Right 23 Lateral Flexion Left 20 Lateral Flexion Right 15 Comments Trunk Flexion is 100 deg?s with 65 deg?s hip flexion, Trunk extension is 5 deg?s with 10 deg?s hip extension. Hip Goniometric Range of Motion Hip Right Passive Testing Position Supine Internal Rotation 45 External Rotation 50 Left Passive Testing Position Supine Internal Rotation 35 External Rotation 60 PT-OP-M Strength Start: 08/08/22 18:28 Freq: Status: Active Protocol: Document 08/12/22 13:51 LRN (Rec: 08/12/22 14:38 LRN [id number]) Trunk Strength Trunk Manual Muscle Testing Core Stabilization Loss of core stability with R hip ext. Hip Strength Hip Manual Muscle Testing Right Comments All muscle groups are 5/5 Left Comments All muscle groups are 5/5 PT-OP-Q Treatments Start: 08/08/22 18:28 Freq: Status: Active Protocol: Document 08/19/22 13:51 LRN (Rec: 08/19/22 14:37 [facility] [id number]) Therapeutic Exercises Supine Exercises Long Holds Supine Exercise Name Long Holds Side left Equipment Used Bolster Reps/Minutes 10 sec hold:10 sec rest x 20 Comments Extra time taken for PF contraction awareness and EMG biofeedback Quick Flicks Supine Exercise Name Quick Flicks Equipment Used Bolster Reps/Minutes 2 sec hold: 5 sec rest x 20 Comments Extra time taken for PF contraction awareness and EMG biofeedback PF baseline assessment Supine Exercise Name PF resting tone - legs on bolster, hands over abdomen Reps/Minutes 2' Comments Extra time for pt to place electrode and position in supine w/legs on bolst Self-Care/Home Management Treatment Education Other Education Reviewed Bladder dairy at length and discussed fluid intake (AM/PM), types, norms of voiding, and voiding frequencies. Discussed bladder retraining. Discussed results of PF EMG assessment and tightness of PF and relation to Coccyx pain. Activities Self-Care/Home Management Activities I/S pt in Happy Baby pose stretch. PT-OP-T Assessment and Plan Start: 08/08/22 18:28 Freq: Status: Active Protocol: Document 08/19/22 13:51 LRN (Rec: 08/19/22 14:37 [facility] [id number]) Physical Therapy Assessment Goals Three Impairment Tailbone pain rated 4/10. Mcfp Goal (LTG) Relieve pain at tailbone with pt able to sit in car or chair without tailbone pain. Two Impairment Decreased PF strength with Urinary leakage with jumping. Short Term Goal (STG) Pt will be able to tolerate bouncing motions on TBall without urinary leakage. Cobbler Apprentice Goal (LTG) Pt will be educated in progressive program to progress towards jumping without urinary leakage. One Impairment Pt lacks appropriates self care HEP. Short Term Goal (STG) Pt will be educated in proper breathwork for jumping and daily activity movements. Mcfp Goal (LTG) Pt will be educated in a HEP of PF strengthening ex's, hip mobility and postural exercises. Assessment Summary Assessment Pt is 1 year post- with stress urinary leakage. Per bladder diary review, pt is has coffee in AM by 10am, and a lot of water afterwards; therefore voiding was frequent the first day on diary (void 7x/day) and every 2 hrs after the first day (void 6x/day), but by end of week was 2-4 hrs (void 5x/day). Pt needs bladder retraining to reduce voids. Per EMG Biofeedback pt appears to have high PF resting tone and has difficulty with PF ms relaxation after PF contraction, especially with long holds. (Baseline resting tone is 5.7uV's. Quick Flicks (10 reps), Avg work is 15 uV, avg rest is 7.6 uV; Long Holds (10 reps) Avg work is 16.8 uV's, avg rest is 6.0 uV's.). Physical Therapy Plan Frequency and Duration Frequency of Treatment 1x/Week Plan of Care Start Date 08/12/22 Plan of Care End Date 10/11/22 Next Visit Focus/Plan Next Note Type Treatment Note Next Visit Plan Assess Coccyx for pain & tight PF ms, check for DR. Education: PF hygiene & care (proper vulvar and perineal care and issue handout), proper transfers for DR protection. Education: PF contractions in isolation of substitute muscles, coordination of proper breaths with ADLs, transfers, body mechanics and exercise. Ex: PF strengthening in isolation of substitute muscles. Proper breathing, PF strengthening, Core/TA stab, Pelvic stab (start Roll in/ outs if tolerated) hip strengthening, Hip stretch (ER >IR).
--- NOTE | 2022-09-02 14:58 | PT.OTN ---
Current Diagnoses Stress incontinence (female) (male) (09/02/22) Physical Therapy Treatment Note PT-OP-A Visit Information Start: 08/08/22 18:28 Freq: Status: Active Protocol: Document 09/02/22 13:57 LRN (Rec: 09/02/22 14:58 LRN [id number]) Out-Patient Physical Therapy Visit Information Visit Information Visit Type Treatment Note Visit Start Time 13:57 Visit Stop Time 14:36 Total Visit Minutes 39 Visit Number 3 Evaluation Information Evaluation Date 08/12/22 Precautions Precautions 07/28/21 due to baby breech and fast progressing labor. PT-OP-B Current Condition Start: 08/08/22 18:28 Freq: Status: Active Protocol: Document 08/12/22 13:51 LRN (Rec: 08/12/22 14:38 LRN [id number]) Current Condition History of Current Condition Onset Date 07/28/21 Current Complaints Urinary leakage with jumping, occ sneezing, laughing, & tailbone pain. History of Current Condition Pt is a 32 year old female, . She reports stress incontinence noted after going back to gym 3 months post- doing jumping. No longer jumping. Has intermittent tailbone pain when sitting, always in car, and when leaning back in chairs and with sit ups. Had tailbone pain during that was terrible. Tailbone pain rated 4/10, and a strong ache requiring her to shift position in sitting. Pt denies Bowel dysfunction, daily BM's type 4. Prior Treatments and Tests None. When in high school, hurt her tailbone and saw PT for something else and was told it was a severe bruise, and pain eventually went away. Treatment Goals Patient/Caregiver Goals Pt goal is to learn something to work on to strengthen PF, and to work towards jumping, and relieve pain at tailbone. 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 Hx of tailbone pain. PT-OP-C Subjective Start: 08/08/22 18:28 Freq: Status: Active Protocol: Document 09/02/22 13:57 LRN (Rec: 09/02/22 14:58 LRN [id number]) OP-PT Subjective Patient Comments Patient Comments Noticing tailbone pain in sitting. Still doing Happy Baby stretch. PT-OP-I Pelvic Floor Start: 08/08/22 18:28 Freq: Status: Active Protocol: Document 08/19/22 13:51 LRN (Rec: 08/19/22 14:37 LRN [id number]) Pelvic Floor Assessment SEMG (uV) Baseline 5.7 Quick Contraction 15 Recruitment Pattern Good Relaxation Poor/Slow Holding Fair Stability of Hold Fair SEMG Stability of Rest Fair Comments Pelvic Floor Comments Pt I/S in safe and proper insert of vaginal probe for PF EMG biofeedback. Start position: Legs on bolster, hands on belly. Quick Flicks: 10 REPS: work 15.0 uV, rest is 7.6uV, 20 REPS: Work 15.6 uV, rest 7.4 uV. Long Holds: 10 REPS: work 16. 8 uV, rest is 6.0 uV, 20 REPS : Work 15.8 uV, rest 5.9 uV. Pt having visual feedback with EMG biofeedback. PT-OP-K Range of Motion Start: 08/08/22 18:28 Freq: Status: Active Protocol: Document 08/12/22 13:51 LRN (Rec: 08/12/22 14:38 LRN [id number]) Lumbar Spine Range of Motion Lumbar Spine Active Degrees Testing Position Standing Flexion 100 Extension 5 Rotation Left 20 Rotation Right 23 Lateral Flexion Left 20 Lateral Flexion Right 15 Comments Trunk Flexion is 100 deg?s with 65 deg?s hip flexion, Trunk extension is 5 deg?s with 10 deg?s hip extension. Hip Goniometric Range of Motion Hip Right Passive Testing Position Supine Internal Rotation 45 External Rotation 50 Left Passive Testing Position Supine Internal Rotation 35 External Rotation 60 PT-OP-M Strength Start: 08/08/22 18:28 Freq: Status: Active Protocol: Document 08/12/22 13:51 LRN (Rec: 08/12/22 14:38 LRN [id number]) Trunk Strength Trunk Manual Muscle Testing Core Stabilization Loss of core stability with R hip ext. Hip Strength Hip Manual Muscle Testing Right Comments All muscle groups are 5/5 Left Comments All muscle groups are 5/5 PT-OP-Q Treatments Start: 08/08/22 18:28 Freq: Status: Active Protocol: Document 09/02/22 13:57 LRN (Rec: 09/02/22 14:58 LRN [id number]) Therapeutic Exercises Supine Exercises Piriformis stretch w/MFR Supine Exercise Name Piriformis stretch with 10x: breathing, hip IR/ER and pulse stretch, 2x Side left TA w/heel lift off wall Supine Exercise Name TA w/single & double heel lift off the wall TA w/march Supine Exercise Name TA w/july Side bilateral Sitting Exercises T Ball Sitting Exercise Name Pelvic Tilts anter/rotary drier feeder Other Exercises Wag the tail Other Exercise Name Wag the tail Side bilateral Cat/cow Other Exercise Name Neutral to trunk ext Reps/Minutes 10x Manual Therapy Treatment Soft Tissue Mobilization Coccygeus ms Body Location L > R External coccygeus ms at lateral side of coccyx Mobilization Type Myofascial Release,Sustained Pressure Intensity/Depth Moderate Body Position Sup, Pron, 4 pt PT-OP-T Assessment and Plan Start: 08/08/22 18:28 Freq: Status: Active Protocol: Document 09/02/22 13:57 LRN (Rec: 09/02/22 14:58 LRN [id number]) Physical Therapy Assessment Goals Three Impairment Tailbone pain rated 4/10. Cpc Coder Goal (LTG) Relieve pain at tailbone with pt able to sit in car or chair without tailbone pain. Two Impairment Decreased PF strength with Urinary leakage with jumping. Short Term Goal (STG) Pt will be able to tolerate bouncing motions on TBall without urinary leakage. Custodial Goal (LTG) Pt will be educated in progressive program to progress towards jumping without urinary leakage. One Impairment Pt lacks appropriates self care HEP. Short Term Goal (STG) Pt will be educated in proper breathwork for jumping and daily activity movements. Custodial Goal (LTG) Pt will be educated in a HEP of PF strengthening ex's, hip mobility and postural exercises. Assessment Summary Assessment Hasn't used yoga ball for sitting or exercise since before childbirth. After MFR the pt was able to sit on TBAll without pain. Start if discomfort felt with posterior tilt sitting on TBall. Mild doming present with in supine with head lift & obvious with heel lift off the wall; therefore TA is weak. Pt has decreased ability to maintain core stability with rotation forces. Tightness present in L coccygeus muscle lateral to coccyx. DR present, worse inferiorly. Physical Therapy Plan Frequency and Duration Frequency of Treatment 1x/Week Plan of Care Start Date 08/12/22 Plan of Care End Date 10/11/22 Next Visit Focus/Plan Next Note Type Treatment Note Next Visit Plan Assess tight PF ms internally if coccyx pain persists after stretching for next 2 weeks. Education: PF hygiene & care (proper vulvar and perineal care and issue handout), proper transfers for DR protection and issue handouts. Education: PF contractions in isolation of substitute muscles, coordination of proper breaths with ADLs, transfers, body mechanics and exercise. Ex: PF strengthening in isolation of substitute muscles. Proper breathing, PF strengthening, Core/TA stab, Pelvic stab (start Roll in/ outs if tolerated) hip strengthening, Hip stretch (ER >IR).
--- NOTE | 2022-09-18 16:50 | PT.OTN ---
Current Diagnoses Stress incontinence (female) (male) (09/18/22) Physical Therapy Treatment Note PT-OP-A Visit Information Start: 08/08/22 18:28 Freq: Status: Active Protocol: Document 09/18/22 13:52 LRN (Rec: 09/18/22 14:32 LRN [id number]) Out-Patient Physical Therapy Visit Information Visit Information Visit Type Treatment Note Visit Start Time 13:52 Visit Stop Time 14:30 Total Visit Minutes 38 Visit Number 4 Evaluation Information Evaluation Date 08/12/22 Precautions Precautions 07/28/21 due to baby breech and fast progressing labor. PT-OP-B Current Condition Start: 08/08/22 18:28 Freq: Status: Active Protocol: Document 08/12/22 13:51 LRN (Rec: 08/12/22 14:38 LRN [id number]) Current Condition History of Current Condition Onset Date 07/28/21 Current Complaints Urinary leakage with jumping, occ sneezing, laughing, & tailbone pain. History of Current Condition Pt is a 32 year old female, . She reports stress incontinence noted after going back to gym 3 months post- doing jumping. No longer jumping. Has intermittent tailbone pain when sitting, always in car, and when leaning back in chairs and with sit ups. Had tailbone pain during that was terrible. Tailbone pain rated 4/10, and a strong ache requiring her to shift position in sitting. Pt denies Bowel dysfunction, daily BM's type 4. Prior Treatments and Tests None. When in high school, hurt her tailbone and saw PT for something else and was told it was a severe bruise, and pain eventually went away. Treatment Goals Patient/Caregiver Goals Pt goal is to learn something to work on to strengthen PF, and to work towards jumping, and relieve pain at tailbone. 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 Hx of tailbone pain. PT-OP-C Subjective Start: 08/08/22 18:28 Freq: Status: Active Protocol: Document 09/18/22 13:52 LRN (Rec: 09/18/22 14:32 LRN [id number]) OP-PT Subjective Patient Comments Patient Comments Pt on period. States the stretches feel good, but no change in coccyx pain with car sitting. Notices worse if sitting on floor in reclined position. Was sore after last session until the following day. Scheduled . Tailbone pain during 3rd trimester. PT-OP-I Pelvic Floor Start: 08/08/22 18:28 Freq: Status: Active Protocol: Document 08/19/22 13:51 LRN (Rec: 08/19/22 14:37 LRN [id number]) Pelvic Floor Assessment SEMG (uV) Baseline 5.7 Quick Contraction 15 Recruitment Pattern Good Relaxation Poor/Slow Holding Fair Stability of Hold Fair SEMG Stability of Rest Fair Comments Pelvic Floor Comments Pt I/S in safe and proper insert of vaginal probe for PF EMG biofeedback. Start position: Legs on bolster, hands on belly. Quick Flicks: 10 REPS: work 15.0 uV, rest is 7.6uV, 20 REPS: Work 15.6 uV, rest 7.4 uV. Long Holds: 10 REPS: work 16. 8 uV, rest is 6.0 uV, 20 REPS : Work 15.8 uV, rest 5.9 uV. Pt having visual feedback with EMG biofeedback. PT-OP-K Range of Motion Start: 08/08/22 18:28 Freq: Status: Active Protocol: Document 08/12/22 13:51 LRN (Rec: 08/12/22 14:38 LRN [id number]) Lumbar Spine Range of Motion Lumbar Spine Active Degrees Testing Position Standing Flexion 100 Extension 5 Rotation Left 20 Rotation Right 23 Lateral Flexion Left 20 Lateral Flexion Right 15 Comments Trunk Flexion is 100 deg?s with 65 deg?s hip flexion, Trunk extension is 5 deg?s with 10 deg?s hip extension. Hip Goniometric Range of Motion Hip Right Passive Testing Position Supine Internal Rotation 45 External Rotation 50 Left Passive Testing Position Supine Internal Rotation 35 External Rotation 60 PT-OP-M Strength Start: 08/08/22 18:28 Freq: Status: Active Protocol: Document 08/12/22 13:51 LRN (Rec: 08/12/22 14:38 LRN [id number]) Trunk Strength Trunk Manual Muscle Testing Core Stabilization Loss of core stability with R hip ext. Hip Strength Hip Manual Muscle Testing Right Comments All muscle groups are 5/5 Left Comments All muscle groups are 5/5 PT-OP-Q Treatments Start: 08/08/22 18:28 Freq: Status: Active Protocol: Document 09/18/22 13:52 LRN (Rec: 09/18/22 14:32 LRN [id number]) Therapeutic Exercises Supine Exercises Transfer sup<>sit Supine Exercise Name Sup<>Sit transfer w/towel to protect DR. Reps/Minutes 12' Comments Reviewed picture handout. Training for coordination of breathing. Deep Breathing Supine Exercise Name Deep Breathing Reps/Minutes 5' Piriformis stretch w/MFR Supine Exercise Name Piriformis stretch with 10x: breathing, hip IR/ER and pulse stretch, 2x Side left TA w/july Supine Exercise Name TA w/july Side bilateral Sitting Exercises Pelvic anterior tilt Sitting Exercise Name Pelvic anterior tilts for coccyx ext Reps/Minutes 3' Other Exercises Child's Pose Other Exercise Name Child's Pose Reps/Minutes 2' Comments No coccyx stretch felt Wag the tail Other Exercise Name WAg the tail stretch Side bilateral Comments cuing for exaggerated motion to get a tiny stretch. Cat/cow Other Exercise Name Neutral to trunk ext Reps/Minutes 10x Manual Therapy Treatment Soft Tissue Mobilization Coccyx Body Location Coccyx Mobilization Type Myofascial Release Intensity/Depth Moderate Body Position Hands/knees Comments Mob of coccyx to the right with trunk ext>neutral & hip ext/IR Self-Care/Home Management Treatment Education Other Education Educated and discussed briefly proper PF core with handouts issued. PT-OP-T Assessment and Plan Start: 08/08/22 18:28 Freq: Status: Active Protocol: Document 09/18/22 13:52 LRN (Rec: 09/18/22 14:32 LRN [id number]) Physical Therapy Assessment Rehab Potential Rehabilitation Potential Good Evaluation Complexity Number of Personal Factors/Comorbidities 1-2 Number of Body Systems Impaired 3 Clinical Presentation at Evaluation Evolving Impairments Impairments Activity Tolerance,Pain,ROM, Strength,Transfers Goals Three Impairment Tailbone pain rated 4/10. Fpc Goal (LTG) Relieve pain at tailbone with pt able to sit in car or chair without tailbone pain. LTG Duration 12/17/22 Two Impairment Decreased PF strength with Urinary leakage with jumping. Short Term Goal (STG) Pt will be able to tolerate bouncing motions on TBall without urinary leakage. STG Duration 11/02/22 Fpc Goal (LTG) Pt will be educated in progressive program to progress towards jumping without urinary leakage. LTG Duration 12/17/22 One Impairment Pt lacks appropriates self care HEP. Short Term Goal (STG) Pt will be educated in proper breathwork for jumping and daily activity movements. STG Duration 11/02/22 Fpc Goal (LTG) Pt will be educated in a HEP of PF strengthening ex's, hip mobility and postural exercises. LTG Duration 12/17/22 Progress Towards Goals Progress Comments Pt Education: PF hygiene & care (proper vulvar and perineal care and issue handout), proper transfers for DR protection and issue handouts. Assessment Summary Assessment Pt is a 32 yo female who presents 1 year post-, C -section, with stress urinary leakage. She also exhibit a diastasis rectus (worse inferiorly) that leads to core instability (especially with rotational forces) and pelvic instability. Initially her external PF tissues appeared somewhat dry and may benefit from a estrodial cream to improve tissue health. She was very receptive to information given to her for general vulvar care and genital hygiene. The pt will benefit from skilled physical therapy to improve hip mobility, improve awareness to improve PF strength, normalize PF ms tone, improve core stability and educate pt on appropriate core ex's to protect and minimize DR signs, and to improve symmetry of hip mobility and strength. Mild abdoinal doming is present with head lift in supine. Recommend continuation of PF rehab. Physical Therapy Plan Frequency and Duration Frequency of Treatment 1x/Week Plan of Care Start Date 08/12/22 Plan of Care End Date 12/17/22 Therapeutic Interventions Therapeutic Interventions Home Exercise Program,Manual Therapy,Patient/Caregiver Education,Self-Care/Home Management,Soft Tissue Mobilization,Therapeutic Activities,Therapeutic Exercises Next Visit Focus/Plan Next Note Type Treatment Note Next Visit Plan Assess tight PF ms internally if coccyx pain persists after 1 more week of home PF stretching. Review: PF hygiene & care ( proper vulvar and perineal care), proper transfers for DR protection and if pt can coodinate with proper breathing. Education: PF contractions in isolation of substitute muscles, coordination of proper breaths: with ADLs, transfers, body mechanics and exercise. Ex: PF strengthening in isolation of substitute muscles, PF strengthening, Core/TA stab, Pelvic stab ( start Roll in/outs if tolerated) hip strengthening, Hip stretch (ER>IR).
--- NOTE | 2022-09-18 16:51 | PT.OPPOC ---
Physical, Occupational & Speech Therapy At [facility] Current Diagnoses Stress incontinence (female) (male) (09/18/22) Visit Care Team Role Provider Type Leah Swan DO Family Provider Physician Primary Care Provider Specialty: Medical Address: [address] [place] [address], [address], [place], [address] Email: [email or web address] Gilbert CNM Attending Provider Advanced Dial Maker Referring Provider Specialty: QUANTITY SURVEYOR Address: [address] [place] [address], [address], [place], [address] Email: [email or web address] Plan Of Care PT-OP-T Assessment and Plan Start: 08/08/22 18:28 Freq: Status: Active Protocol: Document 09/18/22 13:52 LRN (Rec: 09/18/22 14:32 LRN [id number]) Physical Therapy Assessment Rehab Potential Rehabilitation Potential Good Evaluation Complexity Number of Personal Factors/Comorbidities 1-2 Number of Body Systems Impaired 3 Clinical Presentation at Evaluation Evolving Impairments Impairments Activity Tolerance,Pain,ROM, Strength,Transfers Goals Three Impairment Tailbone pain rated 4/10. Jail Goal (LTG) Relieve pain at tailbone with pt able to sit in car or chair without tailbone pain. LTG Duration 12/17/22 Two Impairment Decreased PF strength with Urinary leakage with jumping. Short Term Goal (STG) Pt will be able to tolerate bouncing motions on TBall without urinary leakage. STG Duration 11/02/22 Orthodontic Treatment Coordinator Goal (LTG) Pt will be educated in progressive program to progress towards jumping without urinary leakage. LTG Duration 12/17/22 One Impairment Pt lacks appropriates self care HEP. Short Term Goal (STG) Pt will be educated in proper breathwork for jumping and daily activity movements. STG Duration 11/02/22 Jail Goal (LTG) Pt will be educated in a HEP of PF strengthening ex's, hip mobility and postural exercises. LTG Duration 12/17/22 Progress Towards Goals Progress Comments Pt Education: PF hygiene & care (proper vulvar and perineal care and issue handout), proper transfers for DR protection and issue handouts. Assessment Summary Assessment Pt is a 32 yo female who presents 1 year post-, C -section, with stress urinary leakage. She also exhibit a diastasis rectus (worse inferiorly) that leads to core instability (especially with rotational forces) and pelvic instability. Initially her external PF tissues appeared somewhat dry and may benefit from a estrodial cream to improve tissue health. She was very receptive to information given to her for general vulvar care and genital hygiene. The pt will benefit from skilled physical therapy to improve hip mobility, improve awareness to improve PF strength, normalize PF ms tone, improve core stability and educate pt on appropriate core ex's to protect and minimize DR signs, and to improve symmetry of hip mobility and strength. Mild abdoinal doming is present with head lift in supine. Recommend continuation of PF rehab. Physical Therapy Plan Frequency and Duration Frequency of Treatment 1x/Week Plan of Care Start Date 08/12/22 Plan of Care End Date 12/17/22 Therapeutic Interventions Therapeutic Interventions Home Exercise Program,Manual Therapy,Patient/Caregiver Education,Self-Care/Home Management,Soft Tissue Mobilization,Therapeutic Activities,Therapeutic Exercises Next Visit Focus/Plan Next Note Type Treatment Note Next Visit Plan Assess tight PF ms internally if coccyx pain persists after 1 more week of home PF stretching. Review: PF hygiene & care ( proper vulvar and perineal care), proper transfers for DR protection and if pt can coodinate with proper breathing. Education: PF contractions in isolation of substitute muscles, coordination of proper breaths: with ADLs, transfers, body mechanics and exercise. Ex: PF strengthening in isolation of substitute muscles, PF strengthening, Core/TA stab, Pelvic stab ( start Roll in/outs if tolerated) hip strengthening, Hip stretch (ER>IR). Plan of Care Dates Plan of Care Start Date 08/12/22 Plan of Care End Date 12/17/22 Electronically Signed by: Jeannette Darden, PT 09/18/22 1826 If you are in agreement with this Plan of Care, please return a signed and dated copy. I have reviewed this Plan of Care and certify that the skilled therapy services above are required to meet the patient?s needs. Physician Signature Date Printed Name and Credentials Clinical Instructor Signature Printed Name and Credentials
--- NOTE | 2022-10-02 16:33 | PT.OTN ---
Current Diagnoses Stress incontinence (female) (male) (10/02/22) Physical Therapy Treatment Note PT-OP-A Visit Information Start: 08/08/22 18:28 Freq: Status: Active Protocol: Document 10/02/22 14:18 LRN (Rec: 10/02/22 15:06 LRN [id number]) Out-Patient Physical Therapy Visit Information Visit Information Visit Type Treatment Note Visit Start Time 14:18 Visit Stop Time 15:03 Total Visit Minutes 45 Visit Number 5 Evaluation Information Evaluation Date 08/12/22 Precautions Precautions 07/28/21 due to baby breech and fast progressing labor. PT-OP-B Current Condition Start: 08/08/22 18:28 Freq: Status: Active Protocol: Document 08/12/22 13:51 LRN (Rec: 08/12/22 14:38 LRN [id number]) Current Condition History of Current Condition Onset Date 07/28/21 Current Complaints Urinary leakage with jumping, occ sneezing, laughing, & tailbone pain. History of Current Condition Pt is a 32 year old female, . She reports stress incontinence noted after going back to gym 3 months post- doing jumping. No longer jumping. Has intermittent tailbone pain when sitting, always in car, and when leaning back in chairs and with sit ups. Had tailbone pain during that was terrible. Tailbone pain rated 4/10, and a strong ache requiring her to shift position in sitting. Pt denies Bowel dysfunction, daily BM's type 4. Prior Treatments and Tests None. When in high school, hurt her tailbone and saw PT for something else and was told it was a severe bruise, and pain eventually went away. Treatment Goals Patient/Caregiver Goals Pt goal is to learn something to work on to strengthen PF, and to work towards jumping, and relieve pain at tailbone. 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 Hx of tailbone pain. PT-OP-C Subjective Start: 08/08/22 18:28 Freq: Status: Active Protocol: Document 10/02/22 14:18 LRN (Rec: 10/02/22 15:06 LRN [id number]) OP-PT Subjective Patient Comments Patient Comments Busy. No pain at coccyx unless in reclined position. Feels in tightness in thighs with child's pose stretch. PT-OP-I Pelvic Floor Start: 08/08/22 18:28 Freq: Status: Active Protocol: Document 08/19/22 13:51 LRN (Rec: 08/19/22 14:37 LRN [id number]) Pelvic Floor Assessment SEMG (uV) Baseline 5.7 Quick Contraction 15 Recruitment Pattern Good Relaxation Poor/Slow Holding Fair Stability of Hold Fair SEMG Stability of Rest Fair Comments Pelvic Floor Comments Pt I/S in safe and proper insert of vaginal probe for PF EMG biofeedback. Start position: Legs on bolster, hands on belly. Quick Flicks: 10 REPS: work 15.0 uV, rest is 7.6uV, 20 REPS: Work 15.6 uV, rest 7.4 uV. Long Holds: 10 REPS: work 16. 8 uV, rest is 6.0 uV, 20 REPS : Work 15.8 uV, rest 5.9 uV. Pt having visual feedback with EMG biofeedback. PT-OP-K Range of Motion Start: 08/08/22 18:28 Freq: Status: Active Protocol: Document 08/12/22 13:51 LRN (Rec: 08/12/22 14:38 LRN [id number]) Lumbar Spine Range of Motion Lumbar Spine Active Degrees Testing Position Standing Flexion 100 Extension 5 Rotation Left 20 Rotation Right 23 Lateral Flexion Left 20 Lateral Flexion Right 15 Comments Trunk Flexion is 100 deg?s with 65 deg?s hip flexion, Trunk extension is 5 deg?s with 10 deg?s hip extension. Hip Goniometric Range of Motion Hip Right Passive Testing Position Supine Internal Rotation 45 External Rotation 50 Left Passive Testing Position Supine Internal Rotation 35 External Rotation 60 PT-OP-M Strength Start: 08/08/22 18:28 Freq: Status: Active Protocol: Document 08/12/22 13:51 LRN (Rec: 08/12/22 14:38 LRN [id number]) Trunk Strength Trunk Manual Muscle Testing Core Stabilization Loss of core stability with R hip ext. Hip Strength Hip Manual Muscle Testing Right Comments All muscle groups are 5/5 Left Comments All muscle groups are 5/5 PT-OP-Q Treatments Start: 08/08/22 18:28 Freq: Status: Active Protocol: Document 10/02/22 14:18 LRN (Rec: 10/02/22 15:06 LRN [id number]) Therapeutic Exercises Supine Exercises PF/Bridge/Exhale Supine Exercise Name Posterior PF/Bridge/Exhale Reps/Minutes 15x 2 Transfer sup<>sit Supine Exercise Name Sup<>Sit transfer w/towel to protect DR. Reps/Minutes 7' Comments Reviewed picture handout. Training for coordination of breathing. Deep Breathing Supine Exercise Name Deep Breathing Reps/Minutes 1' Sitting Exercises Posture sitting Sitting Exercise Name Sit posture training to avoid sitting on tip of coccyx in various positions Reps/Minutes 4' Comments Pt in various recline positions, able to eleviate pn w/PPT to get off coccy Pelvic anterior tilt Sitting Exercise Name Pelvic anterior tilts for coccyx ext Reps/Minutes 3' Standing Exercises Posure training Standing Exercise Name Posture training (chest over hips) Reps/Minutes 3' Comments phys assist to move ribs over pelvis and much cuing for PPT, TA tightening Other Exercises Child's Pose Other Exercise Name Child's Pose Reps/Minutes 4' Comments No coccyx stretch felt Wag the tail Other Exercise Name Wag the tail stretch Side bilateral Reps/Minutes 5' Comments cuing for exaggerated motion to get a tiny stretch. Cat/cow Other Exercise Name Neutral to trunk ext Equipment Used Trunk Rot Reps/Minutes Trunk Rot Manual Therapy Treatment Soft Tissue Mobilization Coccygeus ms Body Location R > L External coccygeus ms at lateral side of coccyx Mobilization Type Myofascial Release,Sustained Pressure Intensity/Depth Moderate Body Position Sidelie Comments Tension of Coccygeus ms on the left. Self-Care/Home Management Treatment Education Patient Education Safety Other Education Discussed importance of protecting her DR with a towel or abdominal support underwear. PT-OP-T Assessment and Plan Start: 08/08/22 18:28 Freq: Status: Active Protocol: Document 10/02/22 14:18 LRN (Rec: 10/02/22 15:06 LRN [id number]) Physical Therapy Assessment Goals Three Impairment Tailbone pain rated 4/10. Milk Processing Worker Goal (LTG) Relieve pain at tailbone with pt able to sit in car or chair without tailbone pain. LTG Duration 12/17/22 Two Impairment Decreased PF strength with Urinary leakage with jumping. Short Term Goal (STG) Pt will be able to tolerate bouncing motions on TBall without urinary leakage. STG Duration 11/02/22 Milk Processing Worker Goal (LTG) Pt will be educated in progressive program to progress towards jumping without urinary leakage. LTG Duration 12/17/22 One Impairment Pt lacks appropriates self care HEP. Short Term Goal (STG) Pt will be educated in proper breathwork for jumping and daily activity movements. STG Duration 11/02/22 Penitentiary Goal (LTG) Pt will be educated in a HEP of PF strengthening ex's, hip mobility and postural exercises. LTG Duration 12/17/22 Assessment Summary Assessment Pt is 1 year post-, C- section, with stress urinary leakage and pain at coccyx with reclining. She has trunk rot weakness and also exhibits a diastasis rectus ( worse inferiorly), mild doming with supine head lifts. Her coccyx pain appears due to pt sitting directly on tip of coccyx due to inflammation and poor mobility that she notes has probably been there since she was a child. Pain relief with PPT of pelvis when pain is present in reclined position. Pt has no questions regarding PF hygiene/care. Pt able to coordinate transfers with proper breathing. Pt has not been doing transfers in a manner to protect her DR, but will try to do better. Physical Therapy Plan Frequency and Duration Frequency of Treatment 1x/Week Plan of Care Start Date 08/12/22 Plan of Care End Date 12/17/22 Next Visit Focus/Plan Next Note Type Treatment Note Next Visit Plan Education: PF contractions in isolation of substitute muscles, coordination of proper breaths: with ADLs, transfers, body mechanics and exercise. Ex: PF strengthening in isolation of substitute muscles, PF strengthening, Core/TA stab, Pelvic stab ( start Roll in/outs if tolerated) hip strengthening, Hip stretch (ER>IR). I
--- NOTE | 2022-10-21 12:16 | PT.OTN ---
Current Diagnoses Stress incontinence (female) (male) (10/21/22) Physical Therapy Treatment Note PT-OP-A Visit Information Start: 08/08/22 18:28 Freq: Status: Active Protocol: Document 10/21/22 11:19 LRN (Rec: 10/21/22 12:16 LRN [id number]) Out-Patient Physical Therapy Visit Information Visit Information Visit Type Treatment Note Visit Start Time 11:19 Visit Stop Time 12:00 Total Visit Minutes 41 Visit Number 6 Evaluation Information Evaluation Date 08/12/22 Precautions Precautions 07/28/21 due to baby breech and fast progressing labor. PT-OP-B Current Condition Start: 08/08/22 18:28 Freq: Status: Active Protocol: Document 08/12/22 13:51 LRN (Rec: 08/12/22 14:38 LRN [id number]) Current Condition History of Current Condition Onset Date 07/28/21 Current Complaints Urinary leakage with jumping, occ sneezing, laughing, & tailbone pain. History of Current Condition Pt is a 32 year old female, . She reports stress incontinence noted after going back to gym 3 months post- doing jumping. No longer jumping. Has intermittent tailbone pain when sitting, always in car, and when leaning back in chairs and with sit ups. Had tailbone pain during that was terrible. Tailbone pain rated 4/10, and a strong ache requiring her to shift position in sitting. Pt denies Bowel dysfunction, daily BM's type 4. Prior Treatments and Tests None. When in high school, hurt her tailbone and saw PT for something else and was told it was a severe bruise, and pain eventually went away. Treatment Goals Patient/Caregiver Goals Pt goal is to learn something to work on to strengthen PF, and to work towards jumping, and relieve pain at tailbone. 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 Hx of tailbone pain. PT-OP-C Subjective Start: 08/08/22 18:28 Freq: Status: Active Protocol: Document 10/21/22 11:19 LRN (Rec: 10/21/22 12:16 LRN [id number]) OP-PT Subjective Patient Comments Patient Comments Has identified uporight sitting position of coccyx pain. Wearing a post- abdominal brace that is not changing the coccyx pain, but provides stability of core. PT-OP-I Pelvic Floor Start: 08/08/22 18:28 Freq: Status: Active Protocol: Document 08/19/22 13:51 LRN (Rec: 08/19/22 14:37 LRN [id number]) Pelvic Floor Assessment SEMG (uV) Baseline 5.7 Quick Contraction 15 Recruitment Pattern Good Relaxation Poor/Slow Holding Fair Stability of Hold Fair SEMG Stability of Rest Fair Comments Pelvic Floor Comments Pt I/S in safe and proper insert of vaginal probe for PF EMG biofeedback. Start position: Legs on bolster, hands on belly. Quick Flicks: 10 REPS: work 15.0 uV, rest is 7.6uV, 20 REPS: Work 15.6 uV, rest 7.4 uV. Long Holds: 10 REPS: work 16. 8 uV, rest is 6.0 uV, 20 REPS : Work 15.8 uV, rest 5.9 uV. Pt having visual feedback with EMG biofeedback. PT-OP-K Range of Motion Start: 08/08/22 18:28 Freq: Status: Active Protocol: Document 08/12/22 13:51 LRN (Rec: 08/12/22 14:38 LRN [id number]) Lumbar Spine Range of Motion Lumbar Spine Active Degrees Testing Position Standing Flexion 100 Extension 5 Rotation Left 20 Rotation Right 23 Lateral Flexion Left 20 Lateral Flexion Right 15 Comments Trunk Flexion is 100 deg?s with 65 deg?s hip flexion, Trunk extension is 5 deg?s with 10 deg?s hip extension. Hip Goniometric Range of Motion Hip Right Passive Testing Position Supine Internal Rotation 45 External Rotation 50 Left Passive Testing Position Supine Internal Rotation 35 External Rotation 60 PT-OP-M Strength Start: 08/08/22 18:28 Freq: Status: Active Protocol: Document 08/12/22 13:51 LRN (Rec: 08/12/22 14:38 LRN [id number]) Trunk Strength Trunk Manual Muscle Testing Core Stabilization Loss of core stability with R hip ext. Hip Strength Hip Manual Muscle Testing Right Comments All muscle groups are 5/5 Left Comments All muscle groups are 5/5 PT-OP-Q Treatments Start: 08/08/22 18:28 Freq: Status: Active Protocol: Document 10/21/22 11:19 LRN (Rec: 10/21/22 12:16 LRN [id number]) Therapeutic Exercises Sitting Exercises Weigher Production PF contract/stretch Sitting Exercise Name Sitting Posterior PF contract, f/b bulge Reps/Minutes 3-5x at different times, before STM. Coccyx stretch on small ball Sitting Exercise Name Stretch to L side of coccyx, sitting on small ball Equipment Used small soft purple ball Reps/Minutes 6' Comments Time needed for best positioning & to assess response to stretch Manual Therapy Treatment Soft Tissue Mobilization Coccygeus ms Body Location L External coccygeus ms at lateral side of coccyx Mobilization Type Sustained Pressure Intensity/Depth Moderate to Deep Body Position Sidelying Comments Manual therapy x 2 with time inbetween for self stretch with small purple ball. PT-OP-T Assessment and Plan Start: 08/08/22 18:28 Freq: Status: Active Protocol: Document 10/21/22 11:19 LRN (Rec: 10/21/22 12:16 LRN [id number]) Physical Therapy Assessment Goals Three Impairment Tailbone pain rated 4/10. Fdc Goal (LTG) Relieve pain at tailbone with pt able to sit in car or chair without tailbone pain. 10/21/22: Pt able to sit on plinth after STM @ end of session w/o tailbone pain. LTG Duration 12/17/22 Two Impairment Decreased PF strength with Urinary leakage with jumping. Short Term Goal (STG) Pt will be able to tolerate bouncing motions on TBall without urinary leakage. STG Duration 11/02/22 Greenhouse Staff Goal (LTG) Pt will be educated in progressive program to progress towards jumping without urinary leakage. LTG Duration 12/17/22 One Impairment Pt lacks appropriates self care HEP. Short Term Goal (STG) Pt will be educated in proper breathwork for jumping and daily activity movements. STG Duration 11/02/22 Fdc Goal (LTG) Pt will be educated in a HEP of PF strengthening ex's, hip mobility and postural exercises. LTG Duration 12/17/22 Progress Towards Goals Progress Comments Pt able to sit w/o tailbone pain immediately after treatment. Assessment Summary Assessment Pt is 1 year post-, C- section, with stress urinary leakage and pain at coccyx, identified today, when sitting straight upright. Pt was able to get sitting pain relief after ms release to L side of coccyx. Pt had tension of L side of coccyx with tailbone slightly tipped to left. Physical Therapy Plan Frequency and Duration Frequency of Treatment 1x/Week Plan of Care Start Date 08/12/22 Plan of Care End Date 12/17/22 Next Visit Focus/Plan Next Note Type Treatment Note Next Visit Plan Education: PF contractions in isolation of substitute muscles, coordination of proper breaths: with ADLs, transfers, body mechanics and exercise. Ex: Anterior PF strengthening in isolation of substitute muscles, general anterior PF strengthening, Core/TA stab, Pelvic stab (start Roll in/ outs if tolerated) hip strengthening, Hip stretch (ER >IR).
--- NOTE | 2022-10-31 16:25 | PT.OTN ---
Current Diagnoses Stress incontinence (female) (male) (10/31/22) Physical Therapy Treatment Note PT-OP-A Visit Information Start: 08/08/22 18:28 Freq: Status: Active Protocol: Document 10/31/22 11:19 LRN (Rec: 10/31/22 12:05 LRN [id number]) Out-Patient Physical Therapy Visit Information Visit Information Visit Type Treatment Note Visit Start Time 11:19 Visit Stop Time 12:01 Total Visit Minutes 44 Visit Number 7 Evaluation Information Evaluation Date 08/12/22 Precautions Precautions 07/28/21 due to baby breech and fast progressing labor. PT-OP-B Current Condition Start: 08/08/22 18:28 Freq: Status: Active Protocol: Document 08/12/22 13:51 LRN (Rec: 08/12/22 14:38 LRN [id number]) Current Condition History of Current Condition Onset Date 07/28/21 Current Complaints Urinary leakage with jumping, occ sneezing, laughing, & tailbone pain. History of Current Condition Pt is a 32 year old female, . She reports stress incontinence noted after going back to gym 3 months post- doing jumping. No longer jumping. Has intermittent tailbone pain when sitting, always in car, and when leaning back in chairs and with sit ups. Had tailbone pain during that was terrible. Tailbone pain rated 4/10, and a strong ache requiring her to shift position in sitting. Pt denies Bowel dysfunction, daily BM's type 4. Prior Treatments and Tests None. When in high school, hurt her tailbone and saw PT for something else and was told it was a severe bruise, and pain eventually went away. Treatment Goals Patient/Caregiver Goals Pt goal is to learn something to work on to strengthen PF, and to work towards jumping, and relieve pain at tailbone. 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 Hx of tailbone pain. PT-OP-C Subjective Start: 08/08/22 18:28 Freq: Status: Active Protocol: Document 10/31/22 11:19 LRN (Rec: 10/31/22 12:05 LRN [id number]) OP-PT Subjective Patient Comments Patient Comments Going good. Since the last time, feels like it got the spot. When sitting it doesn't hurt as much. Will be doing long drive on Thursday. Even sitting on the floor with son, doen't feel she has to adjust as quickly. Since last visit [place] and ended with bruise was off to the R side of coccycx (opposite side of where the STM has been). PT-OP-I Pelvic Floor Start: 08/08/22 18:28 Freq: Status: Active Protocol: Document 08/19/22 13:51 LRN (Rec: 08/19/22 14:37 LRN [id number]) Pelvic Floor Assessment SEMG (uV) Baseline 5.7 Quick Contraction 15 Recruitment Pattern Good Relaxation Poor/Slow Holding Fair Stability of Hold Fair SEMG Stability of Rest Fair Comments Pelvic Floor Comments Pt I/S in safe and proper insert of vaginal probe for PF EMG biofeedback. Start position: Legs on bolster, hands on belly. Quick Flicks: 10 REPS: work 15.0 uV, rest is 7.6uV, 20 REPS: Work 15.6 uV, rest 7.4 uV. Long Holds: 10 REPS: work 16. 8 uV, rest is 6.0 uV, 20 REPS : Work 15.8 uV, rest 5.9 uV. Pt having visual feedback with EMG biofeedback. PT-OP-K Range of Motion Start: 08/08/22 18:28 Freq: Status: Active Protocol: Document 08/12/22 13:51 LRN (Rec: 08/12/22 14:38 LRN [id number]) Lumbar Spine Range of Motion Lumbar Spine Active Degrees Testing Position Standing Flexion 100 Extension 5 Rotation Left 20 Rotation Right 23 Lateral Flexion Left 20 Lateral Flexion Right 15 Comments Trunk Flexion is 100 deg?s with 65 deg?s hip flexion, Trunk extension is 5 deg?s with 10 deg?s hip extension. Hip Goniometric Range of Motion Hip Right Passive Testing Position Supine Internal Rotation 45 External Rotation 50 Left Passive Testing Position Supine Internal Rotation 35 External Rotation 60 PT-OP-M Strength Start: 08/08/22 18:28 Freq: Status: Active Protocol: Document 08/12/22 13:51 LRN (Rec: 08/12/22 14:38 LRN [id number]) Trunk Strength Trunk Manual Muscle Testing Core Stabilization Loss of core stability with R hip ext. Hip Strength Hip Manual Muscle Testing Right Comments All muscle groups are 5/5 Left Comments All muscle groups are 5/5 PT-OP-Q Treatments Start: 08/08/22 18:28 Freq: Status: Active Protocol: Document 10/31/22 11:19 LRN (Rec: 10/31/22 12:05 LRN [id number]) Therapeutic Exercises Sitting Exercises Line Inspector PF contract/stretch Sitting Exercise Name Sitting Posterior PF contract, f/b bulge Reps/Minutes 3-5x at different times, before STM. Coccyx stretch on small ball Sitting Exercise Name Stretch to L side of coccyx, sitting on small ball Equipment Used small soft purple ball Reps/Minutes 6' Comments Time needed for best positioning & to assess response to stretch Manual Therapy Treatment Soft Tissue Mobilization Coccyx Body Location PA of coccyx distal end Mobilization Type Oscillations,Sustained Pressure Intensity/Depth superficial to mild Body Position Prone Coccygeus ms Body Location L External coccygeus ms at L lateral side of coccyx Mobilization Type Sustained Pressure Intensity/Depth Moderate to Deep Body Position Prone & Sidelye Manual Techniques MWM: Coccyx with PF contraction Type MWM: Coccyx flex with PF contraction Body Location Coccyx Body Position Prone Reps/Duration 10x PT-OP-T Assessment and Plan Start: 08/08/22 18:28 Freq: Status: Active Protocol: Document 10/31/22 11:19 LRN (Rec: 10/31/22 12:05 LRN [id number]) Physical Therapy Assessment Goals Three Impairment Tailbone pain rated 4/10. Soil Conservation Teacher Goal (LTG) Relieve pain at tailbone with pt able to sit in car or chair without tailbone pain. 10/21/22: Pt able to sit on plinth after STM @ end of session w/o tailbone pain. 10/31/22: Pt sits on plinth, pain 0/10 after manual therapy . LTG Duration 12/17/22 progressed 10/31/22 Two Impairment Decreased PF strength with Urinary leakage with jumping. Short Term Goal (STG) Pt will be able to tolerate bouncing motions on TBall without urinary leakage. STG Duration 11/02/22 Senior Living Goal (LTG) Pt will be educated in progressive program to progress towards jumping without urinary leakage. LTG Duration 12/17/22 One Impairment Pt lacks appropriates self care HEP. Short Term Goal (STG) Pt will be educated in proper breathwork for jumping and daily activity movements. 10/31/22: Pt training in coordination of PF contraction with ADL/transfers (09/18/22). STG Duration 11/02/22 partially met goal 09/18/22. Senior Living Goal (LTG) Pt will be educated in a HEP of PF strengthening ex's, hip mobility and postural exercises. 10/31/22: Pt has been I/S in use of soft ball for stretch to R side of coccyx (10/31/22), Happy Baby Pose (08/19/22), DR protection and PF genital care (09/18/22). LTG Duration 12/17/22 progressed 10/31/22 Assessment Summary Assessment + response to manual therapy, ending with no tailbone pain with sitting. MFR tightness with infer, CCW and AD mobiilty around coccyx. Physical Therapy Plan Frequency and Duration Frequency of Treatment 1x/Week Plan of Care Start Date 08/12/22 Plan of Care End Date 12/17/22 Next Visit Focus/Plan Next Note Type Treatment Note Next Visit Plan Pt to schedule 1-2 more visits if needed. Ex: Anterior PF strengthening in isolation of substitute muscles, general anterior PF strengthening, Core/TA stab, Pelvic stab (start Roll in/ outs if tolerated) hip strengthening, Hip stretch (ER >IR). Education/Training: coordination of proper breaths : with jumping exercise (STG # 1, & goals #2).
--- NOTE | 2022-11-14 12:21 | PT.OTN ---
Current Diagnoses Stress incontinence (female) (male) (11/14/22) Physical Therapy Treatment Note PT-OP-A Visit Information Start: 08/08/22 18:28 Freq: Status: Active Protocol: Document 11/14/22 11:22 LRN (Rec: 11/14/22 12:21 LRN [id number]) Out-Patient Physical Therapy Visit Information Visit Information Visit Type Treatment Note Visit Start Time 11:22 Visit Stop Time 12:00 Total Visit Minutes 38 Visit Number 8 Evaluation Information Evaluation Date 08/12/22 Precautions Precautions 07/28/21 due to baby breech and fast progressing labor. PT-OP-B Current Condition Start: 08/08/22 18:28 Freq: Status: Active Protocol: Document 08/12/22 13:51 LRN (Rec: 08/12/22 14:38 LRN [id number]) Current Condition History of Current Condition Onset Date 07/28/21 Current Complaints Urinary leakage with jumping, occ sneezing, laughing, & tailbone pain. History of Current Condition Pt is a 32 year old female, . She reports stress incontinence noted after going back to gym 3 months post- doing jumping. No longer jumping. Has intermittent tailbone pain when sitting, always in car, and when leaning back in chairs and with sit ups. Had tailbone pain during that was terrible. Tailbone pain rated 4/10, and a strong ache requiring her to shift position in sitting. Pt denies Bowel dysfunction, daily BM's type 4. Prior Treatments and Tests None. When in high school, hurt her tailbone and saw PT for something else and was told it was a severe bruise, and pain eventually went away. Treatment Goals Patient/Caregiver Goals Pt goal is to learn something to work on to strengthen PF, and to work towards jumping, and relieve pain at tailbone. 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 Hx of tailbone pain. PT-OP-C Subjective Start: 08/08/22 18:28 Freq: Status: Active Protocol: Document 11/14/22 11:22 LRN (Rec: 11/14/22 12:21 LRN [id number]) OP-PT Subjective Patient Comments Patient Comments Able to sit without pain, except on a long road trip to [place] had pain while in car, but afterwards, no problem. PT-OP-I Pelvic Floor Start: 08/08/22 18:28 Freq: Status: Active Protocol: Document 08/19/22 13:51 LRN (Rec: 08/19/22 14:37 LRN [id number]) Pelvic Floor Assessment SEMG (uV) Baseline 5.7 Quick Contraction 15 Recruitment Pattern Good Relaxation Poor/Slow Holding Fair Stability of Hold Fair SEMG Stability of Rest Fair Comments Pelvic Floor Comments Pt I/S in safe and proper insert of vaginal probe for PF EMG biofeedback. Start position: Legs on bolster, hands on belly. Quick Flicks: 10 REPS: work 15.0 uV, rest is 7.6uV, 20 REPS: Work 15.6 uV, rest 7.4 uV. Long Holds: 10 REPS: work 16. 8 uV, rest is 6.0 uV, 20 REPS : Work 15.8 uV, rest 5.9 uV. Pt having visual feedback with EMG biofeedback. PT-OP-K Range of Motion Start: 08/08/22 18:28 Freq: Status: Active Protocol: Document 08/12/22 13:51 LRN (Rec: 08/12/22 14:38 LRN [id number]) Lumbar Spine Range of Motion Lumbar Spine Active Degrees Testing Position Standing Flexion 100 Extension 5 Rotation Left 20 Rotation Right 23 Lateral Flexion Left 20 Lateral Flexion Right 15 Comments Trunk Flexion is 100 deg?s with 65 deg?s hip flexion, Trunk extension is 5 deg?s with 10 deg?s hip extension. Hip Goniometric Range of Motion Hip Right Passive Testing Position Supine Internal Rotation 45 External Rotation 50 Left Passive Testing Position Supine Internal Rotation 35 External Rotation 60 PT-OP-M Strength Start: 08/08/22 18:28 Freq: Status: Active Protocol: Document 08/12/22 13:51 LRN (Rec: 08/12/22 14:38 LRN [id number]) Trunk Strength Trunk Manual Muscle Testing Core Stabilization Loss of core stability with R hip ext. Hip Strength Hip Manual Muscle Testing Right Comments All muscle groups are 5/5 Left Comments All muscle groups are 5/5 PT-OP-Q Treatments Start: 08/08/22 18:28 Freq: Status: Active Protocol: Document 11/14/22 11:22 LRN (Rec: 11/14/22 12:21 LRN [id number]) Therapeutic Exercises Sitting Exercises T Ball Sitting Exercise Name Bouncing Equipment Used Lg Green TBall Standing Exercises Bouncing at knees Standing Exercise Name I/S pt in starting at home for prep of jumping Manual Therapy Treatment Soft Tissue Mobilization Coccyx Body Location PA of coccyx distal end Mobilization Type Oscillations,Sustained Pressure Intensity/Depth superficial to mild Body Position Prone Coccygeus ms Body Location L External coccygeus ms at L lateral side of coccyx Mobilization Type Sustained Pressure Intensity/Depth Moderate to Deep Body Position Prone & Sidelye Manual Techniques MWM: Coccyx with PF contraction Type MWM: Coccyx flex with PF contraction Body Location Coccyx Body Position Prone Reps/Duration 10x PT-OP-T Assessment and Plan Start: 08/08/22 18:28 Freq: Status: Active Protocol: Document 11/14/22 11:22 LRN (Rec: 11/14/22 12:21 LRN [id number]) Physical Therapy Assessment Goals Three Impairment Tailbone pain rated 4/10. Residential Goal (LTG) Relieve pain at tailbone with pt able to sit in car or chair without tailbone pain. 10/21/22: Pt able to sit on plinth after STM @ end of session w/o tailbone pain. 10/31/22: Pt sits on plinth, pain 0/10 after manual therapy . 11/14/22: No pain with sitting in chair or plinth. Pt had pain sitting in car ride to [place], but resolved once destination reached. LTG Duration 12/17/22 (11/14/22: MET GOAL) Two Impairment Decreased PF strength with Urinary leakage with jumping. Short Term Goal (STG) Pt will be able to tolerate bouncing motions on TBall without urinary leakage. 11/14/22: No tailbone pain or uriinary leakage. STG Duration 11/02/22 (11/14/22: MET GOAL) Disability Aide Goal (LTG) Pt will be educated in progressive program to progress towards jumping without urinary leakage. 11/14/22: Pt not wanting to return to jumping. Initiated standing bouncing. LTG Duration 12/17/22 progressed 11/14/22 One Impairment Pt lacks appropriates self care HEP. Short Term Goal (STG) Pt will be educated in proper breathwork for jumping and daily activity movements. 10/31/22: Pt training in coordination of PF contraction with ADL/transfers (09/18/22). STG Duration 11/02/22 partially met goal 09/18/22. Residential Goal (LTG) Pt will be educated in a HEP of PF strengthening ex's, hip mobility and postural exercises. 10/31/22: Pt has been I/S in use of soft ball for stretch to R side of coccyx (10/31/22), Happy Baby Pose (08/19/22), DR protection and PF genital care (09/18/22). 11/14/22: Review of 09/02/22 Piriformis stretch education. LTG Duration 12/17/22 progressed 11/14/22 Progress Towards Goals Progress Comments STG #2 and LTG #3 MET for no pain with sitting in car or chair without tailbone pain, except for > 4 hrs sitting had tailbone pain. No urinary leakage bouncing motions on TBall. Assessment Summary Assessment Pt returns reporting mild tenderness at L side of coccyx with Gluteal squeeze, but no discomfort s/p STM. Pt had pain with long car ride to [place] (>4 hrs), but dvai to sit in clinic chair and bounce on TBall w/o coccyx pain. Pt will attempt a 1 hr car ride to assess tolerance to prolonged sitting over the next week. Physical Therapy Plan Frequency and Duration Frequency of Treatment 1x/Week Plan of Care Start Date 08/12/22 Plan of Care End Date 12/17/22 Next Visit Focus/Plan Next Note Type Treatment Note Next Visit Plan DC next visit if no pain with sitting after 1 hr car ride ( assess PUF), and issuance of HEP/Education. Review: Anterior PF strengthening in isolation of substitute muscles, Add HEP/HO: Pelvic/core/TA stab (Roll in/outs program if tolerated) - STG # 2, & #3. HEP/HO: Hip stretch (ER) - LTG # 3. Education/Training: coordination of proper breaths : with jumping exercise - STG #1, & goals #2.
--- NOTE | 2022-11-21 17:23 | PT.OTN ---
Current Diagnoses Stress incontinence (female) (male) (11/21/22) Physical Therapy Treatment Note PT-OP-A Visit Information Start: 08/08/22 18:28 Freq: Status: Active Protocol: Document 11/21/22 10:35 LRN (Rec: 11/21/22 11:17 LRN [id number]) Out-Patient Physical Therapy Visit Information Visit Information Visit Type Treatment Note Visit Start Time 10:35 Visit Stop Time 11:13 Total Visit Minutes 38 Visit Number 9 Evaluation Information Evaluation Date 08/12/22 Precautions Precautions 07/28/21 due to baby breech and fast progressing labor. PT-OP-B Current Condition Start: 08/08/22 18:28 Freq: Status: Active Protocol: Document 08/12/22 13:51 LRN (Rec: 08/12/22 14:38 LRN [id number]) Current Condition History of Current Condition Onset Date 07/28/21 Current Complaints Urinary leakage with jumping, occ sneezing, laughing, & tailbone pain. History of Current Condition Pt is a 32 year old female, . She reports stress incontinence noted after going back to gym 3 months post- doing jumping. No longer jumping. Has intermittent tailbone pain when sitting, always in car, and when leaning back in chairs and with sit ups. Had tailbone pain during that was terrible. Tailbone pain rated 4/10, and a strong ache requiring her to shift position in sitting. Pt denies Bowel dysfunction, daily BM's type 4. Prior Treatments and Tests None. When in high school, hurt her tailbone and saw PT for something else and was told it was a severe bruise, and pain eventually went away. Treatment Goals Patient/Caregiver Goals Pt goal is to learn something to work on to strengthen PF, and to work towards jumping, and relieve pain at tailbone. 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 Hx of tailbone pain. PT-OP-C Subjective Start: 08/08/22 18:28 Freq: Status: Active Protocol: Document 11/21/22 10:35 LRN (Rec: 11/21/22 11:17 LRN [id number]) OP-PT Subjective Patient Comments Patient Comments Noticed discomfort sitting on floor with back against the couch. Patient Questionnaires Pelvic Pain and Urgency/Frequency Patient Symptom Scale Pelvic Pain Score 0 PT-OP-I Pelvic Floor Start: 08/08/22 18:28 Freq: Status: Active Protocol: Document 08/19/22 13:51 LRN (Rec: 08/19/22 14:37 LRN [id number]) Pelvic Floor Assessment SEMG (uV) Baseline 5.7 Quick Contraction 15 Recruitment Pattern Good Relaxation Poor/Slow Holding Fair Stability of Hold Fair SEMG Stability of Rest Fair Comments Pelvic Floor Comments Pt I/S in safe and proper insert of vaginal probe for PF EMG biofeedback. Start position: Legs on bolster, hands on belly. Quick Flicks: 10 REPS: work 15.0 uV, rest is 7.6uV, 20 REPS: Work 15.6 uV, rest 7.4 uV. Long Holds: 10 REPS: work 16. 8 uV, rest is 6.0 uV, 20 REPS : Work 15.8 uV, rest 5.9 uV. Pt having visual feedback with EMG biofeedback. PT-OP-K Range of Motion Start: 08/08/22 18:28 Freq: Status: Active Protocol: Document 08/12/22 13:51 LRN (Rec: 08/12/22 14:38 LRN [id number]) Lumbar Spine Range of Motion Lumbar Spine Active Degrees Testing Position Standing Flexion 100 Extension 5 Rotation Left 20 Rotation Right 23 Lateral Flexion Left 20 Lateral Flexion Right 15 Comments Trunk Flexion is 100 deg?s with 65 deg?s hip flexion, Trunk extension is 5 deg?s with 10 deg?s hip extension. Hip Goniometric Range of Motion Hip Right Passive Testing Position Supine Internal Rotation 45 External Rotation 50 Left Passive Testing Position Supine Internal Rotation 35 External Rotation 60 PT-OP-M Strength Start: 08/08/22 18:28 Freq: Status: Active Protocol: Document 08/12/22 13:51 LRN (Rec: 08/12/22 14:38 LRN [id number]) Trunk Strength Trunk Manual Muscle Testing Core Stabilization Loss of core stability with R hip ext. Hip Strength Hip Manual Muscle Testing Right Comments All muscle groups are 5/5 Left Comments All muscle groups are 5/5 PT-OP-Q Treatments Start: 08/08/22 18:28 Freq: Status: Active Protocol: Document 11/21/22 10:35 LRN (Rec: 11/21/22 11:17 LRN [id number]) Therapeutic Exercises Supine Exercises TA/Roll in/outs Supine Exercise Name TA/Roll in/outs concept for breathwork. Reps/Minutes 6' Comments Cuing to keep abdomen from bulging TA/Trunk rot Supine Exercise Name TA/Trunk rot Equipment Used 8' Comments Cuing to keep abdomen from bulging and ribs in TA/hands & knees push Supine Exercise Name TA/hands & knees push Reps/Minutes 5' Comments Cuing to keep abdomen from bulging Transfer sup<>sit Supine Exercise Name Review: Sup<>Sit transfer w/ towel to protect DR. Reps/Minutes 7' Comments Reviewed picture handout. Training for coordination of breathing. TA w/heel lift off wall Supine Exercise Name TA w/double heel lift off the wall Sitting Exercises General Pre-preg streth program Sitting Exercise Name Pre preg stretch prog Side bilateral Reps/Minutes 3-5 reps hold 2-3 secs. Self-Care/Home Management Treatment Education Patient Education Home Exercise Program Activities Self-Care/Home Management Activities Issued & reviewed HEP: HEP: Progressive TA strengthening roll in/out program and general stretch program to prepare for . PT-OP-T Assessment and Plan Start: 08/08/22 18:28 Freq: Status: Active Protocol: Document 11/21/22 10:35 LRN (Rec: 11/21/22 11:17 LRN [id number]) Physical Therapy Assessment Goals Three Impairment Tailbone pain rated 4/10. Penitentiary Goal (LTG) Relieve pain at tailbone with pt able to sit in car or chair without tailbone pain. 10/21/22: Pt able to sit on plinth after STM @ end of session w/o tailbone pain. 10/31/22: Pt sits on plinth, pain 0/10 after manual therapy . 11/14/22: No pain with sitting in chair or plinth. Pt had pain sitting in car ride to [place], but resolved once destination reached. LTG Duration 12/17/22 (11/14/22: MET GOAL) Two Impairment Decreased PF strength with Urinary leakage with jumping. Short Term Goal (STG) Pt will be able to tolerate bouncing motions on TBall without urinary leakage. 11/14/22: No tailbone pain or uriinary leakage. STG Duration 11/02/22 (11/14/22: MET GOAL) News Library Director Goal (LTG) Pt will be educated in progressive program to progress towards jumping without urinary leakage. 11/21/22: Pt will be educated in progressive HEP for TA/DR protection and ex's for future pregnancies. 11/14/22: Pt not wanting to return to jumping. Initiated standing bouncing. 11/21/22: Pt wanting progressive ex program for DR protection and ex's for preparation of future pregnancies. LTG Duration 12/17/22 11/21/22: LTG changed. MET per pt revised goal. One Impairment Pt lacks appropriates self care HEP. Short Term Goal (STG) Pt will be educated in proper breathwork for jumping and daily activity movements. 10/31/22: Pt training in coordination of PF contraction with ADL/transfers (09/18/22). STG Duration 11/02/22 partially met goal 09/18/22. Pt no longer wants to do jumping. News Library Director Goal (LTG) Pt will be educated in a HEP of PF strengthening ex's, hip mobility and postural exercises. 10/31/22: Pt has been I/S in use of soft ball for stretch to R side of coccyx (10/31/22), Happy Baby Pose (08/19/22), DR protection and PF genital care (09/18/22). 11/14/22: Review of 09/02/22 Piriformis stretch education. 11/21/22: HEP: Progressive TA strengthening roll in/out program and general stretch program to prepare for . LTG Duration 12/17/22 (11/21/22: MET GOAL) Assessment Summary Assessment Pt returns after driving to [place] and back with no onset of coccyx pain with car ride. She did report discomfort with sitting on floor while leaning backwards. We discussed methods to decrease pain through self mobilization . The pt was issued to day a HEP of progressive core/TA strengthening for her DR and issued a home stretch program for preparation for future , she did not need further hip ER stretching. The pt revised her goal to avoid jumping motions; therefore at pt request the previously described ex's were issued to meet her goals. The pt is ready for discharge to her [facility]. Physical Therapy Plan Discharge Physical Therapy Discharge Reasons Goals Met Discharge Comments The pt has done very well with therapy. Thank you for your referral.
== END 2022-11-24 14:04 | disposition home or self-care (01) ==
LOC: PHYS 10:30
PROVIDERS: Family Provider Family Medicine; PCP Family Medicine; Referring Provider Nurse Practitioner Obstetrics & Gynecology; Visit Provider Nurse Practitioner Obstetrics & Gynecology
DX: N39.3 Stress incontinence (female) (male) (principal)
CPT/HCPCS: 97110; 97140; 97162; 97535

== ENCOUNTER → 2024-01-06 14:15 | Outpatient (CLI) | payer OTHER, SELFPAY ==
--- NOTE | 2024-01-06 14:18 | DI.US.S_ITS ---
PROCEDURE: US OB >= 14 WEEKS FETUS INDICATIONS: 20 WK ANATOMY SCAN OUTSIDE/PRIOR DATING DATA: Last menstrual period (LMP): 08/18/2023. LMP-based estimated date of delivery (REX): 05/24/2024. TECHNIQUE: Real-time scanning was performed of the fetus, with image documentation and biometric measurements. Endovaginal scanning: Not performed COMPARISON: [facility], , OB >= 14 WEEKS FETUS, 07/23/2021, 16:58. FINDINGS: General: A single living intrauterine gestation is present. Presentation: Transverse. Placenta: Placental position is anterior , with marginal placenta previa. Amniotic fluid index: 15.8 cm, normal range is 5-24 cm. Single deepest vertical pocket is 5.3 cm. heart rate: 144 beats per minute. Maternal cervical canal: 6.9 cm long. Normal lower limit is 2.5 cm. biometrics: Biparietal diameter: 4.8 cm, 20 weeks 3 days Head circumference: 17.8 cm, 20 weeks 2 days Abdominal circumference: 14.9 cm, 20 weeks 1 day Femur length: 3.3 cm, 20 weeks 1 day Clinically estimated gestational age: 20 weeks 1 day Composite gestational age from present scan: 20 weeks 2 days Estimated weight and percentile: 336 g, 46% Anatomic survey: Neuro: Ventricles are non-dilated at less than 10 mm. Cisterna magna is normal at 3-11 mm. Cerebellum is normal in size and morphology. Nuchal skin fold: Normal at less than 6 mm between 14-21 weeks gestational age. Face: Nose and lips, facial profile are normal. Spine: No evidence for spina bifida. Heart: 4-chambered heart is present, with normal ventricular outflow tracts. Diaphragm: Diaphragm is intact. Stomach: Left-sided stomach is present. Kidneys: No hydronephrosis. Normal is less than 5 mm in 2nd trimester, less than 7 mm in 3rd trimester. Cord: 3-vessel cord has orthotopic insertion. Bladder: Normal in size. Extremities: All 4 extremities identified. IMPRESSION: 1. Single live intrauterine consistent with 20 weeks and 2 days. 2. Facial profile is not well seen secondary to positioning. Otherwise, normal anatomic survey. 3. Marginal placenta previa with the inferior margin of the placenta right at the internal cervical os. Recommend follow-up ultrasound. We strive to produce accurate, complete, and clear reports of imaging services. To assist us in improving patient care, this report was composed using standard report templates and voice recognition software. Therefore, it may contain abnormal punctuation, insertions and/or omissions. Occasional wrong-word or sound-alike substitutions may occur. Though we review the report and make efforts to correct it, we do recommend that the report be read carefully in proper context to recognize any text inaccuracies. Dictated by: Taiwo Bryant M.D. on 01/06/2024 at 18:53 Approved by: Taiwo Bryant M.D. on 01/06/2024 at 18:56
== END ==
PROVIDERS: Family Provider Family Medicine; PCP Family Medicine; Referring Provider Advanced Practice Midwife; Visit Provider Advanced Practice Midwife
DX: O44.20 Partial placenta previa NOS or without hemorrhage, unspecified trimester (principal); Z3A.20 20 weeks gestation of pregnancy
CPT/HCPCS: 76811